=== PATIENT | female | born 1965 | race Caucasian/White ===

== ENCOUNTER 2024-02-26 07:48 | Inpatient (IN) ==
--- NOTE | 2024-02-26 08:18 | ED.PDOC ---
General ED Provider: Dr. DAVID DRIVER MD Chief Complaint: Diarrhea Stated Complaint: Patient is a 58-year-old female that reported to the emergency department for diarrhea x 1 week. Patient stated that she has had the flu about a week ago but has not been able to get rid of her diarrhea. Patient states that she has had 10-15 bouts of diarrhea daily with her last bout being this morning. Patient denies any blood or mucus in the diarrhea. Patient states that the diarrhea is mainly water. Patient denies any recent camping trips, travel outside the country, or eating anything that tasted unpleasant to her. Patient denies any recent contacts with similar symptoms. Patient denies take any medications for her diarrhea. Patient also states that she has [id number] in her hands and feet. Patient states that she has this due to her diabetes. Patient stated that she is prescribed gabapentin for her diabetes but she has not been able to take it because it upsets her stomach. Patient states that she takes metformin 500 mg twice a day for diabetes. Patient stated that she has not checked her blood glucose recently. Patient denied any thing making her symptoms better. Patient states she is not able to hold down food or water as it comes out in the form of diarrhea. Patient states that nothing makes her symptoms better. Patient denies any fever, shortness of breath, chest pain, dizziness, syncope, loss consciousness, headache, sore throat, or any other acute symptoms not mentioned in HPI. Time Seen by Provider: 02/26/24 08:05 Mode of Arrival: Walk-In Information Source: Patient Exam Limitations: No limitations Nursing and Triage Documentation Reviewed and Agree: Yes Does Patient Take Opioids?: No Is Patient Opioid Naive?: No What is Opioid Naive?: *Opioid Naive implies the patient is not already taking opioids or not chronically receiving opioids on a daily basis. *PRN dosing is not "usually" associated with tolerance. *Patients are at higher risk of over-sedation and aspiration. Is Patient Opioid Tolerant?: No What is Opioid Tolerant?: *Opioid Tolerance implies less than the expected response to an opioid. *Acquired tolerance is defined by the patient taking 60mg of oral morphine daily (or equianalgesic dose of another opioid) for 1 week or more. *Often associated with chronic pain. *May take more than usual dose to achieve desired pain control. Review of Systems Review Of Systems Constitutional: Reports No symptoms Eyes: Reports No symptoms Ears, Nose, Mouth, Throat: Reports No symptoms Respiratory: Reports No symptoms Cardiac: Reports No symptoms GI: Reports Diarrhea : Reports No symptoms Musculoskeletal: Reports No symptoms Skin: Reports No symptoms Neurological: Reports Tingling (Paresthesias in her hands and feet.) Endocrine: Reports No symptoms Hematologic/Lymphatic: Reports No symptoms All Other Systems: Reviewed and Negative [facility] Female Reproductive History Menstrual Hx Hysterectomy: Yes Physical Exam Physical Exam Appearance: Reports Well-appearing, No pain distress and Well-nourished Ill-appearing: None Pain Distress: None Eyes: Reports TAM, EOMI and Conjunctiva clear ENT: Reports Ears normal, Nose normal and Oropharynx normal Neck: Supple Respiratory: Reports Airway patent, Breath sounds clear, Breath sounds equal and Respirations nonlabored Cardiovascular: Reports RRR, Pulses normal, No rub and No murmur GI/: Reports Soft, Nontender, No masses, Bowel sounds normal and No Organomegaly Musculoskeletal: Reports Normal strength, ROM intact, No edema and No calf tenderness Skin: Reports Warm, Dry and Normal color Neurological: Reports Sensation intact, Motor intact, Reflexes intact, Cranial nerves intact, Alert and Oriented Psychiatric: Reports Affect appropriate and Mood appropriate Course Course 02/26/24 08:21 02/26/24 08:21 Orders, Labs, Meds: Lab Review 02/26/24 08:21 WBC 16.98 H RBC 5.08 Hgb 14.4 Hct 43.8 MCV 86.2 MCH 28.3 MCHC 32.9 RDW Coeff of Rubio 14.6 Plt Count 274 Immature Gran % (Auto) 0.6 Neut % (Auto) 85.0 H Lymph % (Auto) 8.2 L [place] % (Auto) 5.7 Eos % (Auto) 0.1 Baso % (Auto) 0.4 Neut # (Auto) 14.4 H Lymph # (Auto) 1.4 [place] # (Auto) 1.0 Eos # (Auto) 0.0 Baso # (Auto) 0.1 Immature Gran # (Auto) 0.1 Sodium 137.9 Potassium 2.17 L* Chloride 99.0 Carbon Dioxide 25.0 Anion Gap 16.07 BUN 16.3 Creatinine 1.08 Estimated GFR (MDRD) 52.00 BUN/Creatinine Ratio 15.09 Glucose 150.7 H Hemoglobin A1c 6.09 H Calcium 7.56 L Total Bilirubin 0.82 AST 71.1 H ALT 31.0 Alkaline Phosphatase 86.9 Total Protein 7.54 Albumin 3.86 Globulin 3.68 Albumin/Globulin Ratio 1.04 Lipase 459.6 H Orders Category Date Time Status NPO REMINDER: IMAGING ONCE CARE 02/26/24 08:54 Active CBC W/ AUTO DIFF Stat LAB 02/26/24 08:21 Completed CMP [COMPREHENSIVE METABOLIC PANEL] Stat LAB 02/26/24 08:21 Completed HEMOGLOBIN A1C Stat LAB 02/26/24 08:21 Completed LIPASE Stat LAB 02/26/24 08:21 Completed URINALYSIS C & S IF INDICATED Stat LAB 02/26/24 08:12 Uncollected Ciprofloxacin/D5w [Cipro 400 mg/200 ml D5w] Meds 02/26/24 08:49 Discontinued 400 mg in 200 ml IV ONCE Loperamide HCl [Imodium A-D] Meds 02/26/24 08:05 Discontinued 4 mg PO ONCE STA Lorazepam [Ativan] Meds 02/26/24 08:10 Discontinued 1 mg IVP ONCE STA Potassium Chloride [K-Dur] Meds 02/26/24 08:40 Discontinued 40 meq PO ONCE STA Potassium Chloride [Potassium Chloride 20 Meq/100 ml Meds 02/26/24 08:40 Active Premix] 20 meq in 100 ml IV ONCE Pregabalin [Lyrica] Meds 02/26/24 08:25 Discontinued 100 mg PO ONCE STA Sodium Chloride 0.9% [Sodium Chloride] 1,000 ml Meds 02/26/24 08:[address] ABDOMEN/PELVIS W CONTRAST Stat RADS 02/26/24 08:54 Completed Medications Generic Name Dose Route Start Last Admin Trade Name Freq PRN Reason Stop Dose Admin Potassium Chloride 20 meq in 100 mls @ 50 mls/hr 02/26/24 08:40 02/26/24 08:45 Potassium Chloride 20 Meq/100 Ml Premix IV 02/26/24 10:39 50 mls/hr ONCE ONE Administration Discontinued Medications Generic Name Dose Route Start Last Admin Trade Name Freq PRN Reason Stop Dose Admin Sodium Chloride 1,000 mls @ 1,000 mls/hr 02/26/24 08:05 02/26/24 10:00 Sodium Chloride IV 02/26/24 09:04 Infused BOLUS ONE Infusion Ciprofloxacin/Dextrose 400 mg in 200 mls @ 200 mls/hr 02/26/24 08:49 Cipro 400 Mg/200 Ml D5w IV 02/26/24 09:48 ONCE ONE Loperamide HCl 4 mg 02/26/24 08:05 02/26/24 08:25 Loperamide Hcl 2 Mg/15 Ml Bottle PO 02/26/24 08:06 4 mg ONCE STA Administration Lorazepam 1 mg 02/26/24 08:10 02/26/24 08:20 Lorazepam Inj 2 Mg/Ml Vial IVP 02/26/24 08:11 1 mg ONCE STA Administration Potassium Chloride 40 meq 02/26/24 08:40 02/26/24 08:46 Potassium Chloride 20 Meq Tab PO 02/26/24 08:41 40 meq ONCE STA Administration Pregabalin 100 mg 02/26/24 08:25 02/26/24 08:46 Pregabalin 50 Mg Capsule PO 02/26/24 08:26 100 mg ONCE STA Administration Vital Signs: Temp Pulse Resp BP Pulse Ox O2 Flow Rate 02/26/24 08:41 67 16 126/61 98 2 02/26/24 08:33 94 L 2 02/26/24 08:26 73 16 118/65 95 02/26/24 07:53 98.9 F 73 17 113/62 98 Discharge Plan Discharge Patient Disposition: PLACED OBSERVATION Discharge Problem: Diarrhea, Uncontrolled type 2 diabetes mellitus with hyperglycemia, Hypokalemia, Gastroenteritis, Dehydration, Adrenal mass, Fatty liver, Colitis Diabetic neuropathy Qualifiers: Diabetes mellitus type: type 2 Diabetes mellitus complication detail: diabetic polyneuropathy Qualified Code(s): E11.42 - Type 2 diabetes mellitus with diabetic polyneuropathy Did you review [place] [employer] for ALL controlled substances?: Not Applicable ED Provider: DAVID DRIVER Condition: Stable Physician Progress Note: Patient is a 58-year-old female that reported to the emergency department for diarrhea x 1 week. Patient stated that she has had the flu about a week ago but has not been able to get rid of her diarrhea. Patient states that she has had 10-15 bouts of diarrhea daily with her last bout being this morning. Patient denies any blood or mucus in the diarrhea. Patient states that the diarrhea is mainly water. Patient denies any recent camping trips, travel outside the country, or eating anything that tasted unpleasant to her. Patient denies any recent contacts with similar symptoms. Patient denies take any medications for her diarrhea. Patient also states that she has [id number] in her hands and feet. Patient states that she has this due to her diabetes. Patient stated that she is prescribed gabapentin for her diabetes but she has not been able to take it because it upsets her stomach. Patient states that she takes metformin 500 mg twice a day for diabetes. Patient stated that she has not checked her blood glucose recently. Patient denied any thing making her symptoms better. Patient states she is not able to hold down food or water as it comes out in the form of diarrhea. Patient states that nothing makes her symptoms better. Patient denies any fever, shortness of breath, chest pain, dizziness, syncope, loss consciousness, headache, sore throat, or any other acute symptoms not mentioned in HPI. -Will give the patient IV fluids for dehydration due to diarrhea x 1 week and not being able to hold down any fluids. -Will get baseline labs. Will give the patient IV Ativan 1 mg for anxiety. -Will give the patient p.o. Imodium 4 mg once for diarrhea. -Patient is complaining of peripheral neuropathy pain. Will give her pregabalin 100 mg once in the ER. Patient has not taken her gabapentin as mentioned in HPI. -Patient's potassium is 2.17. Will replace potassium. Will add a K rider with 20 mEq of potassium and give p.o. potassium 40 mEq. -Patient has a 16,000 white count which is indicative patient has been competing with a infectious gastroenteritis. Will give IV ciprofloxacin 400 mg. -Patient has an elevated lipase of 456. With the patient's discomfort in the abdomen and elevated lipase will order CT of the abdomen pelvis with contrast to rule out pancreatitis versus other intra-abdominal pathology. -Due to patient's hypokalemia of 2.17 will contact hospitalist after CT returns for admission to the hospital. -CT of the abdomen pelvis shows colitis, adrenal mass, fatty liver. -(0900) spoke to the hospitalist at [facility], Leobardo Carrera NP, who has agreed to admit the patient for acute hypokalemia and infectious gastroenteritis with dehydration.
[2024-02-26] MEDS: SODIUM CHLORIDE 1,000 ML IV ONE (08:20)
[2024-02-26] MEDS: ATIVAN IVP STA (08:20)
[2024-02-26 08:25] LABS: BASOPHILS # (AUTO) 0.1 K/uL (0-0.2); BASOPHILS % (AUTO) 0.4 % (0.0-3.0); EOSINOPHILS % (AUTO) 0.1 % (0.0-7.0); HEMATOCRIT 43.8 % (37.0-47.0); HEMOGLOBIN 14.4 g/dl (12.0-16.0); IMMATURE GRANULOCYTE # (AUTO) 0.1 (0.0-1.0); IMMATURE GRANULOCYTE % (AUTO) 0.6 % (0.0-5.0); LYMPHOCYTES # (AUTO) 1.4 K/uL (0.60-3.4); LYMPHOCYTES % (AUTO) 8.2 (10.0-50.0); MEAN CORPUSCULAR HEMOGLOBIN 28.3 pg (27.0-31.0); MEAN CORPUSCULAR HGB CONC 32.9 (31.8-35.4); MEAN CORPUSCULAR VOLUME 86.2 fl (81.0-99.0); MONOCYTES % (AUTO) 5.7 (0-10); NEUTROPHILS # (AUTO) 14.4 K/ul (2.0-6.9); PLATELET COUNT 274 10^3/uL (140-440); RDW COEFFICIENT OF VARIATION 14.6 % (11.6-14.8); RED BLOOD COUNT 5.08 10^6/ul (4.20-5.40); WHITE BLOOD COUNT 16.98 K/ul (4.6-10.2)
[2024-02-26] MEDS: IMODIUM A-D PO STA (08:25)
[2024-02-26 08:38] LABS: ALBUMIN 3.86 g/dL (3.5-5.0); ALKALINE PHOSPHATASE 86.9 U/L (38-126); ASPARTATE AMINO TRANSFERASE 71.1 U/L (14-36); BILIRUBIN,TOTAL 0.82 mg/dL (0.2-1.3); BLOOD UREA NITROGEN 16.3 mg/dL (7-17); CALCIUM 7.56 mg/dL (8.4-10.2); CREATININE 1.08 mg/dL (0.60-1.30); GLUCOSE 150.7 mg/dL (74-106); LIPASE 459.6 U/L (23-300); SODIUM 137.9 mmol/L (134.5-145); TOTAL PROTEIN 7.54 g/dL (6.3-8.2)
[2024-02-26 08:40] LABS: POTASSIUM 2.17 mmol/L (3.5-5.1)
[2024-02-26] MEDS: POTASSIUM CHLORIDE 20 MEQ/100 ML PREMIX 20 MEQ/100 ML BAG IV ONE ×2 (08:45→17:28)
[2024-02-26] MEDS: K-DUR PO STA (08:46)
[2024-02-26] MEDS: LYRICA PO STA (08:46)
--- NOTE | 2024-02-26 10:04 | CT ---
EXAM: CT ABDOMEN WITH CONTRAST. CT PELVIS WITH CONTRAST. HISTORY: Abdominal discomfort. Elevated lipase. COMPARISON: None. TECHNIQUE: Multiple axial images of the abdomen and pelvis were obtained following intravenous admin istration of 100 mL Visipaque 320, low osmolar. Images were reformatted in the sagittal and coronal plane. FINDINGS: Small right pleural effusion noted. Staple line along the posterolateral right lower lobe pleural margin. Degenerative changes present in the spine. No acute osseous abnormality detected. Focal areas of low density noted in the liver, including in the left hepatic lobe near the fissure ex ample axial image 19 and near the gallbladder fossa axial image 22. Gallbladder is absent. Pancreas is normal. No peripancreatic inflammation or fluid collection. There is a lobular low density sple ovidio lesion measuring approximately 2.9 x 2.6 x 2.4 cm axial image 22 and coronal image 56. Spleen ot herwise normal. Homogeneous circumscribed 1.3 cm right adrenal nodule contains macroscopic fat densi ty example axial image 29. There is symmetric renal enhancement. There is mild right renal pelvocal iectasis without ureterectasis. No obstructing stone or mass identified. Stomach and small bowel are normal. Appendix normal. Suspect mild wall thickening of the colon most notably from the splenic flexure through the rectum. Uterus absent. Urinary bladder normal. Phleboliths in the pelvis. There is no free fluid or free a ir. Nonenlarged lymph nodes present. Fatty umbilical and periumbilical hernias present without inflammation, sagittal images 90 and 94. A therosclerotic calcifications present without aneurysm. IMPRESSION: 1. Mild distal colitis. 2. No CT evidence for pancreatitis. 3. Probable focal fatty infiltration in the liver. Indeterminate low-density splenic lesion. Consi emily follow-up ultrasound. 4. Right pelvocaliectasis without ureterectasis is suggestive of UPJ obstruction of uncertain chroni city. 5. Benign right adrenal myelolipoma. 6. Atherosclerosis. 7. Small right pleural effusion. All CT scans are performed using dose optimization techniques as appropriate to the performed exam an d include at least one of the following: Automated exposure control, adjustment of the mA and/or kV according t o size, and the use of iterative reconstruction technique.
[2024-02-26 10:47] LABS: SARS COV-2 RNA RAPID NAAT NEGATIVE (NEGATIVE)
[2024-02-26] MEDS: CIPRO 400 MG/200 ML D5W 400 MG/200 ML BAG IV ONE (11:01)
[2024-02-26 11:46] VITALS: BMI 39.2
[2024-02-26] MEDS ORDERED: HUMULIN R (10ML) SUBCUT PRN (12:17)
[2024-02-26] MEDS: D5%-NS-KCL 20 MEQ/L IV SOL 1,000 ML IV SCH (12:44)
[2024-02-26] MEDS: FLAGYL 500 MG/100 ML 500 MG/100 ML BAG IV SCH (12:44)
[2024-02-26 15:06] LABS: BILIRUBIN,URINE Negative (NEGATIVE); CLARITY,URINE Clear (CLEAR); COLOR,URINE Yellow (YELLOW); GLUCOSE, URINE (UA) Negative (NEGATIVE); KETONES,URINE Negative (NEGATIVE); LEUKOCYTE ESTERASE ,URINE 1+ (NEGATIVE); NITRITE,URINE Negative (NEGATIVE); PH,URINE 6.5 (5-9); PROTEIN,URINE 1+ (NEGATIVE); URINE, BLOOD 3+ (NEGATIVE); UROBILINOGEN,URINE 0.2 (0.2)
[2024-02-26 15:13] LABS: RENAL EPITHELIAL CELLS,URINE 0-2 (NOT PRESENT)
[2024-02-26 16:17] LABS: BLOOD UREA NITROGEN 13.4 mg/dL (7-17); CALCIUM 6.79 mg/dL (8.4-10.2); CHLORIDE 102.9 mmol/L (98-107); CREATININE 0.95 mg/dL (0.60-1.30); GLUCOSE 119.1 mg/dL (74-106); SODIUM 138.9 mmol/L (134.5-145)
[2024-02-26 16:20] LABS: POTASSIUM 2.35 mmol/L (3.5-5.1)
--- NOTE | 2024-02-26 17:19 | PCM ---
Date of Service Date Seen by Provider: 02/26/24 Admit Day/Time Admission Date: 02/26/24 Reason for Admission Chief Complaint: SYMPTOMATIC HYPOKALEMIA, GASTROENTERITIS Hospital Provider Hospital Provider: LUISA WIGGINS, [facility] History of Present Illness History of Present Illness: 58 yo female presented to the ER with N/V/D x 1 week. Reports symptoms started with diarrhea on Friday of last week and progressed to vomiting over the last 2 days. Denies any abdominal pain, fever that she is aware of, or other symptoms. Denies blood in stool or vomit. Denies any sick contacts or recent antibiotic use. In ER, she was found to have colitis via CT scan, lipase of 459, and potassium was found to be 2.1. Given potassium replacement and cipro. She was admitted to med/surg observation. Case Discussed With Case Discussed With: Patient's case was discussed with the ER Physicians, Dr. Bolton. [facility] Medical History Fibromyalgia M79.7 - Fibromyalgia (ICD-10) TMJ (temporomandibular joint disorder) M26.609 - Unspecified temporomandibular joint disorder, unspecified side (ICD-10) Surgical History History of brain surgery Z98.890 - Other specified postprocedural states (ICD-10) History of hysterectomy Z90.710 - Acquired absence of both cervix and uterus (ICD-10) Family History Mother Diabetes CVA (cerebral vascular accident) FATHER Lung cancer Social History Smoking and tobacco status: Former smoker Alcohol intake: never Allergies Allergies Allergy/AdvReac Type Severity Reaction Status Date / Time No Known Allergies Allergy Unverified 02/26/24 08:01 Current Medications Home Medications atorvastatin 40 mg tablet 40 mg PO DAILY 02/26/24 [History Confirmed 02/26/24 Last Taken Unknown] dapagliflozin propanediol 10 mg tablet (Farxiga) 10 mg PO DAILY 02/26/24 [History Confirmed 02/26/24 Last Taken Unknown] ezetimibe 10 mg tablet 10 mg PO DAILY 02/26/24 [History Confirmed 02/26/24 Last Taken Unknown] gabapentin 400 mg capsule 400 mg PO TID 02/26/24 [History Confirmed 02/26/24 Last Taken Unknown] loperamide 2 mg capsule (Imodium A-D) See Rx Instructions .Route .COMPLEX PRN loose stool #14 caps 02/26/24 [Rx Last Taken Unknown] metformin 500 mg tablet 500 mg PO BID 02/26/24 [History Confirmed 02/26/24 Last Taken Unknown] omeprazole 20 mg capsule,delayed release 20 mg PO DAILY 02/26/24 [History Confirmed 02/26/24 Last Taken Unknown] sertraline 50 mg tablet 50 mg PO DAILY 02/26/24 [History Confirmed 02/26/24 Last Taken Unknown] Home Metronidazole (Flagyl 500 Mg/100 Ml) 500 mg in 100 mls @ 100 mls/hr IV Q8HR KAREEM Stop: 02/29/24 12:59 Last Admin: 02/26/24 12:44 Dose: 100 mls/hr Ciprofloxacin/Dextrose (Cipro 400 Mg/200 Ml D5w) 400 mg in 200 mls @ 200 mls/hr IV Q12HR KAREEM Stop: 02/29/24 20:59 Potassium Chloride/Dextrose/Sod Cl (D5%-Ns-Kcl 20 Meq/L Iv Zita) 1,000 mls @ 100 mls/hr IV .Q10H KAREEM Last Admin: 02/26/24 12:44 Dose: 100 mls/hr Potassium Chloride (Potassium Chloride 20 Meq/100 Ml Premix) 20 meq in 100 mls @ 50 mls/hr IV ONCE ONE Stop: 02/26/24 19:11 Insulin Human Regular (Insulin Regular, Human 100 Unit/Ml (10ml) Vial) 0 unit SUBCUT PRN PRN; Protocol PRN Reason: Hyperglycemia Discontinued Medications Sodium Chloride (Sodium Chloride) 1,000 mls @ 1,000 mls/hr IV BOLUS ONE Stop: 02/26/24 09:04 Last Infusion: 02/26/24 10:00 Dose: Infused Potassium Chloride (Potassium Chloride 20 Meq/100 Ml Premix) 20 meq in 100 mls @ 50 mls/hr IV ONCE ONE Stop: 02/26/24 10:39 Last Admin: 02/26/24 08:45 Dose: 50 mls/hr Ciprofloxacin/Dextrose (Cipro 400 Mg/200 Ml D5w) 400 mg in 200 mls @ 200 mls/hr IV ONCE ONE Stop: 02/26/24 09:48 Last Admin: 02/26/24 11:01 Dose: 200 mls/hr Loperamide HCl (Loperamide Hcl 2 Mg/15 Ml Bottle) 4 mg PO ONCE STA Stop: 02/26/24 08:06 Last Admin: 02/26/24 08:25 Dose: 4 mg Lorazepam (Lorazepam Inj 2 Mg/Ml Vial) 1 mg IVP ONCE STA Stop: 02/26/24 08:11 Last Admin: 02/26/24 08:20 Dose: 1 mg Potassium Chloride (Potassium Chloride 20 Meq Tab) 40 meq PO ONCE STA Stop: 02/26/24 08:41 Last Admin: 02/26/24 08:46 Dose: 40 meq Potassium Chloride (Potassium Chloride 20 Meq Tab) 40 meq PO ONCE ONE Stop: 02/26/24 17:13 Pregabalin (Pregabalin 50 Mg Capsule) 100 mg PO ONCE STA Stop: 02/26/24 08:26 Last Admin: 02/26/24 08:46 Dose: 100 mg Opioid Naive vs. Tolerant Does Patient Take Opioids?: No Is Patient Opioid Naive?: Yes What is Opioid Naive?: *Opioid Naive implies the patient is not already taking opioids or not chronically receiving opioids on a daily basis. *PRN dosing is not "usually" associated with tolerance. *Patients are at higher risk of over-sedation and aspiration. Is Patient Opioid Tolerant?: No What is Opioid Tolerant?: *Opioid Tolerance implies less than the expected response to an opioid. *Acquired tolerance is defined by the patient taking 60mg of oral morphine daily (or equianalgesic dose of another opioid) for 1 week or more. *Often associated with chronic pain. *May take more than usual dose to achieve desired pain control. Review of Systems Constitutional: Reports Weakness Head: Reports Normocephalic Eyes: Reports No symptoms Ears: Reports No symptoms Nose: Reports No symptoms Mouth: Reports No symptoms Throat: Reports No symptoms Cardiovascular: Reports No symptoms Respiratory: Reports No symptoms Gastrointestinal: Reports Nausea, Vomiting and Diarrhea Genitourinary: Reports No Symptoms Musculoskeletal: Reports No symptoms Endocrine: Reports No symptoms Hematology: Reports No symptoms Neurological: Reports No symptoms Psychiatric: Reports No symptoms Physical examination Most Recent Vital Signs: Most Recent Vital Signs Temperature 96.7 F L 02/26/24 14:00 Temperature Source Temporal Artery Scan 02/26/24 14:00 Temperature Source Infrared 02/26/24 07:53 Pulse Rate 73 02/26/24 14:00 Respiratory Rate 16 02/26/24 14:00 Blood Pressure 109/65 02/26/24 14:00 Blood Pressure Mean 79 02/26/24 14:00 Blood Pressure Left Arm 108/62 02/26/24 11:33 Blood Pressure Location Left Arm 02/26/24 14:00 Blood Pressure Position Supine 02/26/24 14:00 O2 Sat by Pulse Oximetry 97 02/26/24 14:00 Oxygen Delivery Method Room Air 02/26/24 17:00 Oxygen Flow Rate 2 02/26/24 11:33 Height 5 ft 6 in 02/26/24 11:33 Weight 243 lb 8 oz 02/26/24 11:33 Telemetry Type Remote Telemetry 02/26/24 13:00 Telemetry Monitoring Continues 02/26/24 13:00 Telemetry Heart Rate 66 02/26/24 13:00 EKG DE Interval 0.18 02/26/24 13:00 EKG QRS Interval 0.10 02/26/24 13:00 Telemetry Strip Reading SR 02/26/24 13:00 Appearance: Positive No Apparent Distress, Alert and Oriented x3 and Obese Skin: Positive Warm and Good Color HEENT: Positive Normocephalic and PERRLA Neck: Positive Supple and Midline Trachea Chest/Lungs: Positive Symmetrical With Equal Breath Sounds, Clear to Auscultation Bilaterally and Good Air Movement all 4 Lung [place] Heart: Positive RRR and Pulses Normal GI/: Positive Soft, Nontender, Bowel Sounds Normal and No Distention Musculoskeletal: Positive Not Examined Extremities: Positive Intact Peripheral Pulses, Stable Joints Without Laxity and Good ROM in All Joints Neurological: Positive Sensation Intact, Motor intact, Alert, Oriented and Muscle Strength 5/5 in Upper and Lower Extremities Bilaterally Labs This Visit Labs This Visit: Labs This Visit 02/26/24 02/26/24 02/26/24 08:21 10:06 14:52 WBC 16.98 H RBC 5.08 Hgb 14.4 Hct 43.8 MCV 86.2 MCH 28.3 MCHC 32.9 RDW Coeff of Rubio 14.6 Plt Count 274 Immature Gran % (Auto) 0.6 Neut % (Auto) 85.0 H Lymph % (Auto) 8.2 L [place] % (Auto) 5.7 Eos % (Auto) 0.1 Baso % (Auto) 0.4 Neut # (Auto) 14.4 H Lymph # (Auto) 1.4 [place] # (Auto) 1.0 Eos # (Auto) 0.0 Baso # (Auto) 0.1 Immature Gran # (Auto) 0.1 Sodium 137.9 Potassium 2.17 L* Chloride 99.0 Carbon Dioxide 25.0 Anion Gap 16.07 BUN 16.3 Creatinine 1.08 Estimated GFR (MDRD) 52.00 BUN/Creatinine Ratio 15.09 Glucose 150.7 H Hemoglobin A1c 6.09 H Calcium 7.56 L Total Bilirubin 0.82 AST 71.1 H ALT 31.0 Alkaline Phosphatase 86.9 Total Protein 7.54 Albumin 3.86 Globulin 3.68 Albumin/Globulin Ratio 1.04 Lipase 459.6 H Urine Color Yellow Urine Clarity Clear Urine pH 6.5 Ur Specific [place] 1.010 Urine Protein 1+ H Urine Glucose (UA) Negative Urine Ketones Negative Urine Blood 3+ H Urine Nitrite Negative Urine Bilirubin Negative Urine Urobilinogen 0.2 Ur Leukocyte Esterase 1+ H Urine Microscopic RBC 10-20 Urine Microscopic WBC 5-10 Ur Squamous Epith Cells 5-10 Ur Renal Epithelial Cell 0-2 SARS CoV-2 RNA Rapid SONU Negative 02/26/24 16:00 WBC RBC Hgb Hct MCV MCH MCHC RDW Coeff of [place] Plt Count Immature Gran % (Auto) Neut % (Auto) Lymph % (Auto) [place] % (Auto) Eos % (Auto) Baso % (Auto) Neut # (Auto) Lymph # (Auto) [place] # (Auto) Eos # (Auto) Baso # (Auto) Immature Gran # (Auto) Sodium 138.9 Potassium 2.35 L* Chloride 102.9 Carbon Dioxide 27.0 Anion Gap 11.35 BUN 13.4 Creatinine 0.95 Estimated GFR (MDRD) 60.00 BUN/Creatinine Ratio 14.10 Glucose 119.1 H Hemoglobin A1c Calcium 6.79 L Total Bilirubin AST ALT Alkaline Phosphatase Total Protein Albumin Globulin Albumin/Globulin Ratio Lipase Urine Color Urine Clarity Urine pH Ur Specific [place] Urine Protein Urine Glucose (UA) Urine Ketones Urine Blood Urine Nitrite Urine Bilirubin Urine Urobilinogen Ur Leukocyte Esterase Urine Microscopic RBC Urine Microscopic WBC Ur Squamous Epith Cells Ur Renal Epithelial Cell SARS CoV-2 RNA Rapid SONU Imaging Imaging: EXAM: CT ABDOMEN WITH CONTRAST. CT PELVIS WITH CONTRAST. FINDINGS: Small right pleural effusion noted. Staple line along the posterolateral right lower lobe pleural margin. Degenerative changes present in the spine. No acute osseous abnormality detected. Focal areas of low density noted in the liver, including in the left hepatic lobe near the fissure example axial image 19 and near the gallbladder fossa axial image 22. Gallbladder is absent. Pancreas is normal. No peripancreatic inflammation or fluid collection. There is a lobular low density splenic lesion measuring approximately 2.9 x 2.6 x 2.4 cm axial image 22 and coronal image 56. Spleen otherwise normal. Homogeneous circumscribed 1.3 cm right adrenal nodule contains macroscopic fat density example axial image 29. There is symmetric renal enhancement. There is mild right renal pelvocaliectasis without ureterectasis. No obstructing stone or mass identified. Stomach and small bowel are normal. Appendix normal. Suspect mild wall thickening of the colon most notably from the splenic flexure through the rectum. Uterus absent. Urinary bladder normal. Phleboliths in the pelvis. There is no free fluid or free air. Nonenlarged lymph nodes present. Fatty umbilical and periumbilical hernias present without inflammation, sagittal images 90 and 94. Atherosclerotic calcifications present without aneurysm. IMPRESSION: 1. Mild distal colitis. 2. No CT evidence for pancreatitis. 3. Probable focal fatty infiltration in the liver. Indeterminate low-density splenic lesion. Consider follow-up ultrasound. 4. Right pelvocaliectasis without ureterectasis is suggestive of UPJ obstruction of uncertain chronicity. 5. Benign right adrenal myelolipoma. 6. Atherosclerosis. 7. Small right pleural effusion. Review Statement Review Statement: I have independently reviewed and interpreted the labs/EKGs/imaging that were ordered by the ER provider. I have reviewed all outside records that are available currently in our EMR including imaging/notes/labs from previous visits. Plan Plan: 1. Severe Hypokalemia - replacement given in ER, repeat level completed this afternoon and additional replacement given, receiving D5NS+20 mEq KCL@100mLh/hr, telemetry 2. Distal Colitis - NPO earlier today, advancing to clear liquids; continue to advance diet as tolerated, cipro and flagyl, trend lipase and potassium 3. DM2 - chronic, hold oral agents accuchecks qid with ssi, ADA when able to resume full diet 4. Hyperlipidemia - chronic, continue home medications 5. GERD - chronic, continue home medications DVT Prophylaxis: Ambulation Time Spent: Greater than 80 minutes spent with patient, 50% of the time spent with this patient was devoted to counseling and coordination of care. [facility] minutes spent discussing advance care planning. Disposition: Admit to: Med/Surg Observation DNI, CPR only Discussed Plan of Care with Dr. Micheal Caruso. Medications Medication Orders: Medications Ordered Category Date Time Status Ciprofloxacin/D5w [Cipro 400 mg/200 ml D5w] Meds 02/26/24 21:00 Active 400 mg in 200 ml IV Q12HR Insulin Regular, Human [Humulin R (10Ml)] Meds 02/26/24 12:17 Active See Protocol SUBCUT PRN PRN Metronidazole/Sodium Chloride [Flagyl 500 mg/100 ml] Meds 02/26/24 13:00 Active 500 mg in 100 ml IV Q8HR Potassium Chloride [K-Dur] Meds 02/26/24 17:12 Once 40 meq PO ONCE ONE Potassium Chloride [Potassium Chloride 20 Meq/100 ml Meds 02/26/24 17:12 Ordered Premix] 20 meq in 100 ml IV ONCE Potassium Chloride/D5-0.9%NaCl [D5%-Ns-KCl 20 Meq/l IV Meds 02/26/24 12:30 Active Zita] 1,000 ml IV 100 mls/hr
[2024-02-26] MEDS: K-DUR PO ONE (17:28)
[2024-02-26] MEDS: NEURONTIN PO SCH ×2 (20:12)
[2024-02-26] MEDS: CIPRO 400 MG/200 ML D5W 400 MG/200 ML BAG IV SCH (21:19)
[2024-02-27 05:26] LABS: BASOPHILS # (AUTO) 0.1 K/uL (0-0.2); BASOPHILS % (AUTO) 0.5 % (0.0-3.0); EOSINOPHILS # (AUTO) 0.2 K/ul (0.0-0.7); EOSINOPHILS % (AUTO) 1.4 % (0.0-7.0); HEMATOCRIT 40.7 % (37.0-47.0); HEMOGLOBIN 12.9 g/dl (12.0-16.0); IMMATURE GRANULOCYTE # (AUTO) 0.1 (0.0-1.0); IMMATURE GRANULOCYTE % (AUTO) 0.4 % (0.0-5.0); LYMPHOCYTES % (AUTO) 16.3 (10.0-50.0); MEAN CORPUSCULAR HEMOGLOBIN 28.5 pg (27.0-31.0); MEAN CORPUSCULAR HGB CONC 31.7 (31.8-35.4); MONOCYTES # (AUTO) 0.8 K/uL (0.4-2.0); MONOCYTES % (AUTO) 6.8 (0-10); NEUTROPHILS # (AUTO) 9.3 K/ul (2.0-6.9); NEUTROPHILS % (AUTO) 74.6 % (42.2-75.2); PLATELET COUNT 251 10^3/uL (140-440); RED BLOOD COUNT 4.52 10^6/ul (4.20-5.40); WHITE BLOOD COUNT 12.43 K/ul (4.6-10.2)
[2024-02-27 05:40] LABS: ALANINE AMINOTRANSFERASE 35.5 U/L (0-35); ALBUMIN 3.41 g/dL (3.5-5.0); ALKALINE PHOSPHATASE 77.1 U/L (38-126); ASPARTATE AMINO TRANSFERASE 96.3 U/L (14-36); BILIRUBIN,TOTAL 0.45 mg/dL (0.2-1.3); BLOOD UREA NITROGEN 9.5 mg/dL (7-17); CALCIUM 6.93 mg/dL (8.4-10.2); CHLORIDE 106.3 mmol/L (98-107); CREATININE 0.79 mg/dL (0.60-1.30); GLUCOSE 133.7 mg/dL (74-106); SODIUM 140.7 mmol/L (134.5-145); TOTAL PROTEIN 6.86 g/dL (6.3-8.2)
[2024-02-27 05:46] LABS: POTASSIUM 2.65 mmol/L (3.5-5.1)
[2024-02-27] MEDS: K-DUR PO STA (06:40)
[2024-02-27] MEDS: POTASSIUM CHLORIDE 20 MEQ/100 ML PREMIX 20 MEQ/100 ML BAG IV ONE (07:02)
[2024-02-27] MEDS ORDERED: NON-FORMULARY MEDICATION (Gabapentin 400 mg capsule) PO SCH (09:10)
[2024-02-27] MEDS: NEURONTIN PO SCH (09:19)
[2024-02-27] MEDS ORDERED: GABAPENTIN PO ONE (09:30)
--- NOTE | 2024-02-27 13:18 | PCM.PROG ---
Date/Time Seen Date Seen by Provider: 02/27/24 Time Seen by Provider: 08:30 Provider [facility] Chief Complaint Chief Complaint: SYMPTOMATIC HYPOKALEMIA, GASTROENTERITIS Subjective Subjective: Continues to feel weak and fatigued. Has had more episodes of liquid diarrhea. Tolerating clear liquids well without abdominal pain or vomiting. Reports weakness episode when ambulating to the bathroom with nursing staff. Endorses numbness and tingling to all extremities unsure if related to neuropathy in combination with hypokalemia. No fever or other symptoms at this time. Objective Appearance: Positive No Apparent Distress, Alert and Oriented x3 and Ill- Appearing Chest/Lungs: Positive Symmetrical With Equal Breath Sounds and Clear to Auscultation Bilaterally Heart: Positive RRR and Pulses Normal GI/: Positive Soft, Nontender, Bowel Sounds Normal and No Distention Musculoskeletal: Positive Not Examined Neurological: Positive Sensation Intact, Motor intact, Alert, Oriented and Other (generalized weakness) Vital Signs Vital Signs: Vital Signs: Last 24 Hours 02/26/24 14:00 02/26/24 14:00 02/26/24 15:00 Temperature 96.7 F L Temperature Source Temporal Artery Scan Pulse Rate 73 Respiratory Rate 16 Blood Pressure 109/65 Blood Pressure Mean 79 Blood Pressure Location Left Arm Blood Pressure Position Supine O2 Sat by Pulse Oximetry 97 Oxygen Delivery Method Nasal Cannula Room Air Room Air Telemetry Type Telemetry Monitoring Telemetry Heart Rate EKG KS Interval EKG QRS Interval Telemetry Strip Reading 02/26/24 16:00 02/26/24 17:00 02/26/24 18:00 Temperature Temperature Source Pulse Rate Respiratory Rate Blood Pressure Blood Pressure Mean Blood Pressure Location Blood Pressure Position O2 Sat by Pulse Oximetry Oxygen Delivery Method Room Air Room Air Room Air Telemetry Type Telemetry Monitoring Telemetry Heart Rate EKG KS Interval EKG QRS Interval Telemetry Strip Reading 02/26/24 18:00 02/26/24 19:00 02/26/24 19:00 Temperature 96.9 F L Temperature Source Temporal Artery Scan Pulse Rate 80 Respiratory Rate 16 Blood Pressure 121/64 Blood Pressure Mean 83 Blood Pressure Location Right Arm Blood Pressure Position Supine O2 Sat by Pulse Oximetry 95 Oxygen Delivery Method Room Air Room Air Telemetry Type Remote Telemetry Telemetry Monitoring Continues Telemetry Heart Rate 76 EKG KS Interval 0.19 EKG QRS Interval 0.08 Telemetry Strip Reading 02/26/24 19:25 02/26/24 20:00 02/26/24 20:58 Temperature Temperature Source Pulse Rate Respiratory Rate 16 Blood Pressure Blood Pressure Mean Blood Pressure Location Blood Pressure Position O2 Sat by Pulse Oximetry Oxygen Delivery Method Room Air Room Air Room Air Telemetry Type Telemetry Monitoring Telemetry Heart Rate EKG KS Interval EKG QRS Interval Telemetry Strip Reading 02/26/24 20:58 02/26/24 22:00 02/26/24 23:00 Temperature 98.7 F Temperature Source Temporal Artery Scan Pulse Rate 70 Respiratory Rate 18 Blood Pressure 111/55 L Blood Pressure Mean 73 Blood Pressure Location Left Arm Blood Pressure Position Supine O2 Sat by Pulse Oximetry 93 L Oxygen Delivery Method Room Air Room Air Room Air Telemetry Type Telemetry Monitoring Telemetry Heart Rate EKG KS Interval EKG QRS Interval Telemetry Strip Reading 02/27/24 00:00 02/27/24 01:00 02/27/24 01:00 Temperature Temperature Source Pulse Rate Respiratory Rate Blood Pressure Blood Pressure Mean Blood Pressure Location Blood Pressure Position O2 Sat by Pulse Oximetry Oxygen Delivery Method Room Air Room Air Room Air Telemetry Type Telemetry Monitoring Telemetry Heart Rate EKG KS Interval EKG QRS Interval Telemetry Strip Reading 02/27/24 01:00 02/27/24 02:00 02/27/24 02:00 Temperature 96.9 F L Temperature Source Temporal Artery Scan Pulse Rate 69 Respiratory Rate 18 Blood Pressure 132/69 Blood Pressure Mean 90 Blood Pressure Location Left Arm Blood Pressure Position Supine O2 Sat by Pulse Oximetry 97 Oxygen Delivery Method Room Air Room Air Telemetry Type Remote Telemetry Telemetry Monitoring Continues Telemetry Heart Rate 64 EKG KS Interval 0.18 EKG QRS Interval 0.09 Telemetry Strip Reading sinus rhythm 02/27/24 02:58 02/27/24 04:00 02/27/24 05:00 Temperature Temperature Source Pulse Rate Respiratory Rate Blood Pressure Blood Pressure Mean Blood Pressure Location Blood Pressure Position O2 Sat by Pulse Oximetry Oxygen Delivery Method Room Air Room Air Room Air Telemetry Type Telemetry Monitoring Telemetry Heart Rate EKG KS Interval EKG QRS Interval Telemetry Strip Reading 02/27/24 05:03 02/27/24 05:44 02/27/24 07:00 Temperature 96.1 F L Temperature Source Pulse Rate 68 Respiratory Rate 18 Blood Pressure 124/68 Blood Pressure Mean 86 Blood Pressure Location Left Arm Blood Pressure Position Supine O2 Sat by Pulse Oximetry 97 Oxygen Delivery Method Room Air Room Air Room Air Telemetry Type Telemetry Monitoring Telemetry Heart Rate EKG KS Interval EKG QRS Interval Telemetry Strip Reading 02/27/24 07:00 02/27/24 07:07 02/27/24 08:00 Temperature Temperature Source Pulse Rate Respiratory Rate Blood Pressure Blood Pressure Mean Blood Pressure Location Blood Pressure Position O2 Sat by Pulse Oximetry Oxygen Delivery Method Room Air Room Air Telemetry Type Remote Telemetry Telemetry Monitoring Continues Telemetry Heart Rate 81 EKG KS Interval 0.14 EKG QRS Interval 0.10 Telemetry Strip Reading SR 02/27/24 08:15 02/27/24 09:00 02/27/24 10:00 Temperature 97.5 F L Temperature Source Oral Pulse Rate 82 Respiratory Rate 20 Blood Pressure 128/70 Blood Pressure Mean 89 Blood Pressure Location Left Arm Blood Pressure Position Supine O2 Sat by Pulse Oximetry 100 Oxygen Delivery Method Room Air Room Air Room Air Telemetry Type Telemetry Monitoring Telemetry Heart Rate EKG KS Interval EKG QRS Interval Telemetry Strip Reading 02/27/24 10:00 02/27/24 11:00 02/27/24 12:00 Temperature 97.3 F L Temperature Source Temporal Artery Scan Pulse Rate 67 Respiratory Rate 18 Blood Pressure 107/83 Blood Pressure Mean 91 Blood Pressure Location Left Arm Blood Pressure Position Sitting O2 Sat by Pulse Oximetry 97 Oxygen Delivery Method Room Air Room Air Room Air Telemetry Type Telemetry Monitoring Telemetry Heart Rate EKG KS Interval EKG QRS Interval Telemetry Strip Reading 02/27/24 12:54 02/27/24 13:00 Temperature Temperature Source Pulse Rate Respiratory Rate Blood Pressure Blood Pressure Mean Blood Pressure Location Blood Pressure Position O2 Sat by Pulse Oximetry Oxygen Delivery Method Room Air Telemetry Type Remote Telemetry Telemetry Monitoring Continues Telemetry Heart Rate 79 EKG KS Interval 0.16 EKG QRS Interval 0.10 Telemetry Strip Reading SR Lab Results Lab Results: Lab Results: Last 24 Hours 02/27/24 02/26/24 02/26/24 04:53 16:00 14:52 WBC 12.43 H RBC 4.52 Hgb 12.9 Hct 40.7 MCV 90.0 MCH 28.5 MCHC 31.7 L RDW Coeff of Rubio 15.0 H Plt Count 251 Immature Gran % (Auto) 0.4 Neut % (Auto) 74.6 Lymph % (Auto) 16.3 [place] % (Auto) 6.8 Eos % (Auto) 1.4 Baso % (Auto) 0.5 Neut # (Auto) 9.3 H Lymph # (Auto) 2.0 [place] # (Auto) 0.8 Eos # (Auto) 0.2 Baso # (Auto) 0.1 Immature Gran # (Auto) 0.1 Sodium 140.7 138.9 Potassium 2.65 L* 2.35 L* Chloride 106.3 102.9 Carbon Dioxide 25.0 27.0 Anion Gap 12.05 11.35 BUN 9.5 13.4 Creatinine 0.79 0.95 Estimated GFR (MDRD) 75.00 60.00 BUN/Creatinine Ratio 12.02 14.10 Glucose 133.7 H 119.1 H Calcium 6.93 L 6.79 L Total Bilirubin 0.45 AST 96.3 H D ALT 35.5 H Alkaline Phosphatase 77.1 Total Protein 6.86 Albumin 3.41 L Globulin 3.45 Albumin/Globulin Ratio 0.98 Urine Color Yellow Urine Clarity Clear Urine pH 6.5 Ur Specific [place] 1.010 Urine Protein 1+ H Urine Glucose (UA) Negative Urine Ketones Negative Urine Blood 3+ H Urine Nitrite Negative Urine Bilirubin Negative Urine Urobilinogen 0.2 Ur Leukocyte Esterase 1+ H Urine Microscopic RBC 10-20 Urine Microscopic WBC 5-10 Ur Squamous Epith Cells 5-10 Ur Renal Epithelial Cell 0-2 Additional Comments Additional Comments: I have independently reviewed and interpreted the labs/EKGs/imaging ordered during this hospital stay. I have reviewed outside records that are available in our EMR that pertain to medical stay including imaging/notes/labs from previous visits. Active Medications Active Medications: Medications Generic Name Dose Route Start Last Admin Trade Name Freq PRN Reason Stop Dose Admin Gabapentin 1,200 mg 02/27/24 09:30 02/27/24 09:19 Gabapentin 300 Mg Capsule PO 1,200 mg TID KAREEM Administration Metronidazole 500 mg in 100 mls @ 100 mls/hr 02/26/24 13:00 02/27/24 12:42 Flagyl 500 Mg/100 Ml IV 02/29/24 12:59 100 mls/hr Q8HR KAREEM Administration Ciprofloxacin/Dextrose 400 mg in 200 mls @ 200 mls/hr 02/26/24 21:00 02/27/24 08:53 Cipro 400 Mg/200 Ml D5w IV 02/29/24 20:59 200 mls/hr Q12HR KAREEM Administration Potassium Chloride/Dextrose/Sod Cl 1,000 mls @ 100 mls/hr 02/26/24 12:30 02/27/24 12:42 D5%-Ns-Kcl 20 Meq/L Iv Zita IV 100 mls/hr .Q10H KAREEM Administration Insulin Human Regular 0 unit 02/26/24 12:17 Insulin Regular, Human 100 Unit/Ml (10ml) Vial SUBCUT PRN PRN Hyperglycemia Protocol Plan Plan: 1. Severe Hypokalemia - Mildly improved, additional replacement given in addition to fluids, receiving D5NS+20 mEq KCL@100mLh/hr, telemetry 2. Distal Colitis - Unchanged, continues to have diarrhea - checking stool studies to r/o c.diff or other etiology, clear liquids - continue to advance diet as tolerated, cipro and flagyl, trend lipase and potassium 3. DM2 - chronic, hold oral agents accuchecks qid with ssi, ADA when able to resume full diet 4. Hyperlipidemia - chronic, continue home medications 5. GERD - chronic, continue home medications DVT Prophylaxis: Ambulation Review Statement Review Statement: I have personally discussed and reviewed the patient's visit/currently labs/imaging/decision making with Dr. Caruso, my supervising attending. Greater that 50 minutes spent with patient, 50% of the time spent with this patient was devoted to counseling and coordination of care.
[2024-02-27 15:21] LABS: BLOOD UREA NITROGEN 7.1 mg/dL (7-17); CALCIUM 6.56 mg/dL (8.4-10.2); CARBON DIOXIDE 22.9 mmol/L (22-30.0); CHLORIDE 108.6 mmol/L (98-107); CREATININE 0.73 mg/dL (0.60-1.30); GLUCOSE 127.3 mg/dL (74-106); LIPASE 315.1 U/L (23-300); POTASSIUM 3.06 mmol/L (3.5-5.1)
[2024-02-28 05:13] LABS: BASOPHILS # (AUTO) 0.1 K/uL (0-0.2); BASOPHILS % (AUTO) 0.5 % (0.0-3.0); EOSINOPHILS # (AUTO) 0.3 K/ul (0.0-0.7); EOSINOPHILS % (AUTO) 2.7 % (0.0-7.0); HEMOGLOBIN 12.5 g/dl (12.0-16.0); IMMATURE GRANULOCYTE # (AUTO) 0.1 (0.0-1.0); IMMATURE GRANULOCYTE % (AUTO) 0.5 % (0.0-5.0); LYMPHOCYTES # (AUTO) 1.9 K/uL (0.60-3.4); LYMPHOCYTES % (AUTO) 20.6 (10.0-50.0); MEAN CORPUSCULAR HEMOGLOBIN 28.3 pg (27.0-31.0); MEAN CORPUSCULAR HGB CONC 31.3 (31.8-35.4); MEAN CORPUSCULAR VOLUME 90.7 fl (81.0-99.0); MONOCYTES # (AUTO) 0.6 K/uL (0.4-2.0); NEUTROPHILS # (AUTO) 6.2 K/ul (2.0-6.9); NEUTROPHILS % (AUTO) 68.7 % (42.2-75.2); PLATELET COUNT 231 10^3/uL (140-440); RDW COEFFICIENT OF VARIATION 15.1 % (11.6-14.8); RED BLOOD COUNT 4.41 10^6/ul (4.20-5.40); WHITE BLOOD COUNT 9.11 K/ul (4.6-10.2)
[2024-02-28 05:25] LABS: ALANINE AMINOTRANSFERASE 39.2 U/L (0-35); ALBUMIN 3.24 g/dL (3.5-5.0); ALKALINE PHOSPHATASE 70.8 U/L (38-126); ASPARTATE AMINO TRANSFERASE 78.2 U/L (14-36); BILIRUBIN,TOTAL 0.35 mg/dL (0.2-1.3); BLOOD UREA NITROGEN 4.6 mg/dL (7-17); CALCIUM 6.78 mg/dL (8.4-10.2); CARBON DIOXIDE 26.1 mmol/L (22-30.0); CHLORIDE 107.5 mmol/L (98-107); CREATININE 0.7 mg/dL (0.60-1.30); GLUCOSE 123.1 mg/dL (74-106); LIPASE 281.7 U/L (23-300); POTASSIUM 2.91 mmol/L (3.5-5.1); SODIUM 141.7 mmol/L (134.5-145); TOTAL PROTEIN 6.66 g/dL (6.3-8.2)
[2024-02-28] MEDS: K-DUR PO ONE ×3 (09:20→20:18)
--- NOTE | 2024-02-28 09:43 | PCM.PROG ---
Date/Time Seen Date Seen by Provider: 02/28/24 Time Seen by Provider: 08:30 Provider Provider: Nich[facility]ers [facility] Chief Complaint Chief Complaint: SYMPTOMATIC HYPOKALEMIA, GASTROENTERITIS Subjective Subjective: Patient doesn't feel much better. States she's had 10-15 stools in last 24 hours. Denies blood in stool. Sometimes has some epigastric pain. Potassium mildly worse today. Objective Appearance: Positive No Apparent Distress, Alert and Oriented x3 and Ill-Appeari ng Chest/Lungs: Positive Symmetrical With Equal Breath Sounds and Clear to Auscultation Bilaterally Heart: Positive RRR and Pulses Normal GI/: Positive Soft, Nontender, Bowel Sounds Normal and No Distention Neurological: Positive Sensation Intact, Motor intact, Alert, Oriented and Other (generalized weakness) Additional Findings: Flat affect Vital Signs Vital Signs: Vital Signs: Last 24 Hours 02/27/24 10:00 02/27/24 10:00 02/27/24 11:00 Temperature 97.3 F L Temperature Source Temporal Artery Scan Pulse Rate 67 Respiratory Rate 18 Blood Pressure 107/83 Blood Pressure Mean 91 Blood Pressure Location Left Arm Blood Pressure Position Sitting O2 Sat by Pulse Oximetry 97 Oxygen Delivery Method Room Air Room Air Room Air Telemetry Type Telemetry Monitoring Telemetry Heart Rate EKG CA Interval EKG QRS Interval Telemetry Strip Reading 02/27/24 12:00 02/27/24 12:54 02/27/24 13:00 Temperature Temperature Source Pulse Rate Respiratory Rate Blood Pressure Blood Pressure Mean Blood Pressure Location Blood Pressure Position O2 Sat by Pulse Oximetry Oxygen Delivery Method Room Air Room Air Telemetry Type Remote Telemetry Telemetry Monitoring Continues Telemetry Heart Rate 79 EKG CA Interval 0.16 EKG QRS Interval 0.10 Telemetry Strip Reading SR 02/27/24 14:00 02/27/24 14:00 02/27/24 14:00 Temperature 96.9 F L Temperature Source Temporal Artery Scan Pulse Rate 73 Respiratory Rate 18 Blood Pressure 115/67 Blood Pressure Mean 83 Blood Pressure Location Left Arm Blood Pressure Position Sitting O2 Sat by Pulse Oximetry 98 Oxygen Delivery Method Room Air Room Air Room Air Telemetry Type Telemetry Monitoring Telemetry Heart Rate EKG CA Interval EKG QRS Interval Telemetry Strip Reading 02/27/24 15:00 02/27/24 15:50 02/27/24 17:00 Temperature Temperature Source Pulse Rate Respiratory Rate Blood Pressure Blood Pressure Mean Blood Pressure Location Blood Pressure Position O2 Sat by Pulse Oximetry Oxygen Delivery Method Room Air Room Air Room Air Telemetry Type Telemetry Monitoring Telemetry Heart Rate EKG CA Interval EKG QRS Interval Telemetry Strip Reading 02/27/24 17:31 02/27/24 17:52 02/27/24 19:00 Temperature 97.1 F L Temperature Source Temporal Artery Scan Pulse Rate 72 Respiratory Rate 18 Blood Pressure 120/62 Blood Pressure Mean 81 Blood Pressure Location Left Arm Blood Pressure Position Sitting O2 Sat by Pulse Oximetry 98 Oxygen Delivery Method Room Air Room Air Room Air Telemetry Type Telemetry Monitoring Telemetry Heart Rate EKG CA Interval EKG QRS Interval Telemetry Strip Reading 02/27/24 19:00 02/27/24 19:52 02/27/24 20:00 Temperature Temperature Source Pulse Rate Respiratory Rate Blood Pressure Blood Pressure Mean Blood Pressure Location Blood Pressure Position O2 Sat by Pulse Oximetry Oxygen Delivery Method Room Air Room Air Telemetry Type Remote Telemetry Telemetry Monitoring Continues Telemetry Heart Rate 69 EKG CA Interval 0.18 EKG QRS Interval 0.11 H Telemetry Strip Reading SR w/ BBB 02/27/24 21:00 02/27/24 21:05 02/27/24 22:00 Temperature 96.3 F L Temperature Source Temporal Artery Scan Pulse Rate 73 Respiratory Rate 18 Blood Pressure 133/77 Blood Pressure Mean 95 Blood Pressure Location Left Arm Blood Pressure Position Supine O2 Sat by Pulse Oximetry 99 Oxygen Delivery Method Room Air Room Air Room Air Telemetry Type Telemetry Monitoring Telemetry Heart Rate EKG CA Interval EKG QRS Interval Telemetry Strip Reading 02/27/24 23:00 02/28/24 00:00 02/28/24 01:00 Temperature Temperature Source Pulse Rate Respiratory Rate Blood Pressure Blood Pressure Mean Blood Pressure Location Blood Pressure Position O2 Sat by Pulse Oximetry Oxygen Delivery Method Room Air Room Air Room Air Telemetry Type Telemetry Monitoring Telemetry Heart Rate EKG CA Interval EKG QRS Interval Telemetry Strip Reading 02/28/24 01:00 02/28/24 02:00 02/28/24 02:00 Temperature Temperature Source Pulse Rate 71 Respiratory Rate 20 Blood Pressure Blood Pressure Mean Blood Pressure Location Blood Pressure Position O2 Sat by Pulse Oximetry Oxygen Delivery Method Room Air Room Air Telemetry Type Remote Telemetry Telemetry Monitoring Continues Telemetry Heart Rate 71 EKG CA Interval 0.18 EKG QRS Interval 0.10 Telemetry Strip Reading SR 02/28/24 03:00 02/28/24 04:00 02/28/24 05:00 Temperature Temperature Source Pulse Rate Respiratory Rate Blood Pressure Blood Pressure Mean Blood Pressure Location Blood Pressure Position O2 Sat by Pulse Oximetry Oxygen Delivery Method Room Air Room Air Room Air Telemetry Type Telemetry Monitoring Telemetry Heart Rate EKG CA Interval EKG QRS Interval Telemetry Strip Reading 02/28/24 05:21 02/28/24 06:00 02/28/24 07:00 Temperature 97.4 F L Temperature Source Temporal Artery Scan Pulse Rate 71 Respiratory Rate 18 Blood Pressure 123/73 Blood Pressure Mean 89 Blood Pressure Location Right Arm Blood Pressure Position Supine O2 Sat by Pulse Oximetry 100 Oxygen Delivery Method Room Air Room Air Room Air Telemetry Type Telemetry Monitoring Telemetry Heart Rate EKG CA Interval EKG QRS Interval Telemetry Strip Reading 02/28/24 07:00 02/28/24 08:00 02/28/24 09:00 Temperature Temperature Source Pulse Rate Respiratory Rate Blood Pressure Blood Pressure Mean Blood Pressure Location Blood Pressure Position O2 Sat by Pulse Oximetry Oxygen Delivery Method Room Air Room Air Telemetry Type Remote Telemetry Telemetry Monitoring Telemetry Heart Rate 70 EKG CA Interval 0.15 EKG QRS Interval 0.08 Telemetry Strip Reading NSR Lab Results Lab Results: Lab Results: Last 24 Hours 02/28/24 02/27/24 04:53 15:00 WBC 9.11 RBC 4.41 Hgb 12.5 Hct 40.0 MCV 90.7 MCH 28.3 MCHC 31.3 L RDW Coeff of Rubio 15.1 H Plt Count 231 Immature Gran % (Auto) 0.5 Neut % (Auto) 68.7 Lymph % (Auto) 20.6 [place] % (Auto) 7.0 Eos % (Auto) 2.7 Baso % (Auto) 0.5 Neut # (Auto) 6.2 Lymph # (Auto) 1.9 [place] # (Auto) 0.6 Eos # (Auto) 0.3 Baso # (Auto) 0.1 Immature Gran # (Auto) 0.1 Sodium 141.7 141.0 Potassium 2.91 L 3.06 L Chloride 107.5 H 108.6 H Carbon Dioxide 26.1 22.9 Anion Gap 11.01 12.56 BUN 4.6 L 7.1 Creatinine 0.70 0.73 Estimated GFR (MDRD) 86.00 82.00 BUN/Creatinine Ratio 6.57 9.72 Glucose 123.1 H 127.3 H Calcium 6.78 L 6.56 L Total Bilirubin 0.35 AST 78.2 H ALT 39.2 H Alkaline Phosphatase 70.8 Total Protein 6.66 Albumin 3.24 L Globulin 3.42 Albumin/Globulin Ratio 0.94 Lipase 281.7 315.1 H Additional Comments Additional Comments: I have independently reviewed and interpreted the labs/EKGs/imaging ordered during this hospital stay. I have reviewed outside records that are available in our EMR that pertain to medical stay including imaging/notes/labs from previous visits. Active Medications Active Medications: Medications Generic Name Dose Route Start Last Admin Trade Name Freq PRN Reason Stop Dose Admin Gabapentin 1,200 mg 02/27/24 09:30 02/28/24 09:19 Gabapentin 300 Mg Capsule PO 1,200 mg TID KAREEM Administration Metronidazole 500 mg in 100 mls @ 100 mls/hr 02/26/24 13:00 02/28/24 04:26 Flagyl 500 Mg/100 Ml IV 02/29/24 12:59 100 mls/hr Q8HR KAREEM Administration Ciprofloxacin/Dextrose 400 mg in 200 mls @ 200 mls/hr 02/26/24 21:00 02/28/24 08:43 Cipro 400 Mg/200 Ml D5w IV 02/29/24 20:59 200 mls/hr Q12HR KAREEM Administration Potassium Chloride/Dextrose/Sod Cl 1,000 mls @ 100 mls/hr 02/26/24 12:30 02/28/24 00:26 D5%-Ns-Kcl 20 Meq/L Iv Zita IV 100 mls/hr .Q10H KAREEM Administration Insulin Human Regular 0 unit 02/26/24 12:17 Insulin Regular, Human 100 Unit/Ml (10ml) Vial SUBCUT PRN PRN Hyperglycemia Protocol Plan Plan: 1. Severe Hypokalemia - Worsened today, additional replacement given, telemetry 2. Distal Colitis - Unchanged, continues to have diarrhea - checking stool studies to r/o c.diff or other etiology, clear liquids - continue to advance diet as tolerated, cipro and flagyl, trend lipase and potassium. Delay in obtained stool samples as they were regularly mixed with urine reportedly. 3. DM2 - chronic, hold oral agents accuchecks qid with ssi, ADA when able to resume full diet 4. Hyperlipidemia - chronic, continue home medications 5. GERD - chronic, continue home medications DVT Prophylaxis: Lovenox Make inpatient today, patient at risk of deteriorating, severe hypokalemia, and dehydration due to frequent stools. Also stool studies still pending. Review Statement Review Statement: I have personally discussed and reviewed the patient's visit/currently labs/imaging/decision making with Dr. Caruso, my supervising attending. Greater that 50 minutes spent with patient, 50% of the time spent with this patient was devoted to counseling and coordination of care.
[2024-02-28] MEDS: LOVENOX SUBCUT SCH (11:02)
[2024-02-28] MEDS: ZOFRAN 4 MG/2 ML IVP PRN (13:16)
[2024-02-29 05:48] VITALS: BP 122/63; PULSE 86; RESP 21; TEMP 97
[2024-02-29 07:24] LABS: ALBUMIN 3.15 g/dL (3.5-5.0); ALKALINE PHOSPHATASE 67.3 U/L (38-126); ASPARTATE AMINO TRANSFERASE 54.3 U/L (14-36); BILIRUBIN,TOTAL 0.38 mg/dL (0.2-1.3); BLOOD UREA NITROGEN 2.6 mg/dL (7-17); CALCIUM 7.32 mg/dL (8.4-10.2); CARBON DIOXIDE 27.9 mmol/L (22-30.0); CHLORIDE 108.9 mmol/L (98-107); CREATININE 0.7 mg/dL (0.60-1.30); POTASSIUM 3.92 mmol/L (3.5-5.1); SODIUM 142.6 mmol/L (134.5-145); TOTAL PROTEIN 6.82 g/dL (6.3-8.2)
--- NOTE | 2024-02-29 08:27 | DCSUM ---
Admission Date Admission Date: 02/26/24 Discharge Date Discharge Date: 02/29/24 Admission Diagnosis Admission Diagnosis: 1. Severe Hypokalemia 2. Distal Colitis 3. DM2 4. Hyperlipidemia 5. GERD Discharge Diagnosis Discharge Diagnosis: 1. Severe Hypokalemia - Resolved 2. Distal Colitis - Improving 3. DM2 - Chronic, stable 4. Hyperlipidemia - Chronic, stable 5. GERD - Chronic, stable Hospital Provider Hospital Provider[facility] LU[facility] Summary of History and Physical Summary of History and Physical: 58 yo female presented to the ER with N/V/D x 1 week. Reports symptoms started with diarrhea on Friday of last week and progressed to vomiting over the last 2 days. Denies any abdominal pain, fever that she is aware of, or other symptoms. Denies blood in stool or vomit. Denies any sick contacts or recent antibiotic use. In ER, she was found to have colitis via CT scan, lipase of 459, and potassium was found to be 2.1. Given potassium replacement and cipro. She was admitted to med/surg observation. Hospital Course Subjective: During stay, patient continued to have diarrhea. Stool studies were ordered to r/o other etilogy. Cdiff negative. Rotavirus pending. Treated colitis with cipro and flagyl. White count improved. Tolerating liquid diet well. Lipase trended down and within normal limits. Discussed to continue bland diet until illness runs its course. Avoid immodium. Hypokalemia resolved today after multiple replacements given including IV fluids with 20 mEq KCL added. No changes made to home medications. Sent Rx for cipro and flagyl. Vital Signs: Most Recent Vital Signs Temperature 97 F L 02/29/24 05:40 Temperature Source Temporal Artery Scan 02/29/24 05:40 Temperature Source Infrared 02/26/24 07:53 Pulse Rate 86 02/29/24 05:40 Respiratory Rate 21 H 02/29/24 05:40 Blood Pressure 122/63 02/29/24 05:40 Blood Pressure Mean 82 02/29/24 05:40 Blood Pressure Left Arm 108/62 02/26/24 11:33 Blood Pressure Location Left Arm 02/29/24 05:40 Blood Pressure Position Supine 02/29/24 05:40 O2 Sat by Pulse Oximetry 97 02/29/24 05:40 Oxygen Delivery Method Room Air 02/29/24 05:40 Oxygen Flow Rate 2 02/26/24 11:33 Height 5 ft 6 in 02/26/24 11:33 Weight 243 lb 8 oz 02/26/24 11:33 Telemetry Type Remote Telemetry 02/29/24 07:00 Telemetry Monitoring Continues 02/29/24 07:00 Telemetry Heart Rate 72 02/29/24 07:00 EKG AR Interval 0.17 02/29/24 07:00 EKG QRS Interval 0.9 H 02/29/24 07:00 Telemetry Strip Reading NSR 02/29/24 07:00 Lab Results Last 24 Hours: 02/29/24 05:45 Sodium 142.6 Potassium 3.92 Chloride 108.9 H Carbon Dioxide 27.9 Anion Gap 9.72 BUN 2.6 L Creatinine 0.70 Estimated GFR (MDRD) 86.00 BUN/Creatinine Ratio 3.71 Glucose 110.0 H Calcium 7.32 L Total Bilirubin 0.38 AST 54.3 H ALT 41.0 H Alkaline Phosphatase 67.3 Total Protein 6.82 Albumin 3.15 L Globulin 3.67 Albumin/Globulin Ratio 0.85 Lipase 216.2 Discharge Instructions Discharge Planning: Discharge Planning > 40 minutes If patient is discharged with left ventricular systolic dysfunction: NA Discharged with a beta zohra? [] If no, why not? [] Discharged with an ayde/arb? [] If no, why not? [] Diagnosis: Colitis, Hypokalemia Diet: [place], advance as tolerated Activity: as tolerated Follow-up with PCP this week. Medications: Ciprofloxacin take twice a day x 2 days Metronidazole take twice a day x 2 days Discharge Medications: Medications at Discharge (Home Meds & RX) atorvastatin 40 mg tablet 40 mg PO DAILY 02/26/24 dapagliflozin propanediol 10 mg tablet (Farxiga) 10 mg PO DAILY 02/26/24 ezetimibe 10 mg tablet 10 mg PO DAILY 02/26/24 loperamide 2 mg capsule (Imodium A-D) See Rx Instructions .Route .COMPLEX PRN loose stool #14 caps 02/26/24 metformin 500 mg tablet 500 mg PO BID 02/26/24 omeprazole 20 mg capsule,delayed release 20 mg PO DAILY 02/26/24 sertraline 50 mg tablet 50 mg PO DAILY 02/26/24 gabapentin 400 mg capsule 1,200 mg PO TID 02/27/24 Discharge Plan Discharge Discharge Orders: Discharge Patient (ONCE); Ordered 02/29/24 Ordered By: NEYDA MANDUJANO Activity Restrictions/Additional Instructions: Diagnosis: Colitis, Hypokalemia Diet: [place], advance as tolerated Activity: as tolerated Follow-up with PCP this week. Medications: Ciprofloxacin take twice a day x 2 days Metronidazole take twice a day x 2 days Instructions: Hypokalemia (IP), Colitis (ED) Patient Disposition: HOME WITH FAMILY CARE Prescriptions: New ciprofloxacin HCl [Cipro] 500 mg tablet 500 mg PO BID Qty: 4 0RF metronidazole 500 mg tablet 500 mg PO BID Qty: 4 0RF Continued omeprazole 20 mg capsule,delayed release(DR/EC) 20 mg PO DAILY atorvastatin 40 mg tablet 40 mg PO DAILY ezetimibe 10 mg tablet 10 mg PO DAILY sertraline 50 mg tablet 50 mg PO DAILY metformin 500 mg tablet 500 mg PO BID dapagliflozin propanediol [Farxiga] 10 mg tablet 10 mg PO DAILY gabapentin 400 mg capsule 1,200 mg PO TID Did you review [place] [employer] for ALL controlled substances?: No Discussed opioids are addictive and Narcan is available by prescription or from pharmacy.: No Condition: Stable
== END 2024-02-29 11:50 | disposition home or self-care (01) | DRG 639 ==
LOC: ED 07:48 → MEDSURG A 07:48 → OBSVTOIN 10:24 → MEDSURG A 11:35
PROVIDERS: ADMIT Hospitalist; ATTEND Nurse Practitioner Family
DX: K21.9 Gastro-esophageal reflux disease without esophagitis; E78.5 Hyperlipidemia, unspecified; K76.0 Fatty (change of) liver, not elsewhere classified; E11.42 Type 2 diabetes mellitus with diabetic polyneuropathy; K52.9 Noninfective gastroenteritis and colitis, unspecified; E11.65 Type 2 diabetes mellitus with hyperglycemia; E86.0 Dehydration; E87.6 Hypokalemia; Z87.891 Personal history of nicotine dependence

== ENCOUNTER 2024-03-01 22:14 | Observation (INO) ==
--- NOTE | 2024-03-01 22:35 | ED.PDOC ---
General ED Provider: Dr. TORRES RAMESH MD Chief Complaint: Weakness Stated Complaint: Patient with a history of type 2 diabetes, polyneuropathy, hospitalized on date 02/26/2020-02/2024 for acute acute dehydration, acute colitis and hypokalemia. The patient's abnormal lab test potassium 2.1 corrected to potassium 3.9 yesterday. Patient white blood cell count 16,000 corrected to white blood cell count of 9100 upon discharge yesterday. Patient states she is having diarrhea at home x 3 episodes emesis x 3 states she is taking nothing for diarrhea since been discharged. Patient also complains of crampy abdominal pain. Patient complains of generalized weakness and marked pain and numbness in her feet. Time Seen by Provider: 03/01/24 22:16 Mode of Arrival: Ambulance Information Source: Patient and EMT Exam Limitations: No limitations Nursing and Triage Documentation Reviewed and Agree: Yes What is Opioid Naive?: *Opioid Naive implies the patient is not already taking opioids or not chronically receiving opioids on a daily basis. *PRN dosing is not "usually" associated with tolerance. *Patients are at higher risk of over-sedation and aspiration. What is Opioid Tolerant?: *Opioid Tolerance implies less than the expected response to an opioid. *Acquired tolerance is defined by the patient taking 60mg of oral morphine daily (or equianalgesic dose of another opioid) for 1 week or more. *Often associated with chronic pain. *May take more than usual dose to achieve desired pain control. Review of Systems Review Of Systems Constitutional: Reports Weakness Eyes: Reports No symptoms Ears, Nose, Mouth, Throat: Reports No symptoms Respiratory: Reports No symptoms Cardiac: Reports No symptoms GI: Reports Abdominal pain, Nausea and Vomiting : Reports No symptoms Musculoskeletal: Reports Joint pain Skin: Reports No symptoms Neurological: Reports No symptoms Endocrine: Reports No symptoms Hematologic/Lymphatic: Reports No symptoms [facility] Medical History Fibromyalgia M79.7 - Fibromyalgia (ICD-10) TMJ (temporomandibular joint disorder) M26.609 - Unspecified temporomandibular joint disorder, unspecified side (ICD-10) Family History Mother Diabetes CVA (cerebral vascular accident) FATHER Lung cancer Social History Smoking and tobacco status: Former smoker Alcohol intake: never Surgical History History of brain surgery Z98.890 - Other specified postprocedural states (ICD-10) History of hysterectomy Z90.710 - Acquired absence of both cervix and uterus (ICD-10) Female Reproductive History Menstrual Hx Hysterectomy: Yes Physical Exam Physical Exam Appearance: Reports Well-appearing Ill-appearing: None Pain Distress: None Eyes: Reports TAM, EOMI and Conjunctiva clear ENT: Reports Ears normal and Nose normal Neck: Supple Respiratory: Reports Airway patent, Breath sounds clear and Breath sounds equal Cardiovascular: Reports RRR, Pulses normal, No rub and No murmur GI/: Reports Soft, Nontender, No masses and Bowel sounds normal Musculoskeletal: Reports Normal strength, ROM intact and No edema Skin: Reports Warm and Dry Neurological: Reports Sensation intact, Motor intact and Reflexes intact Psychiatric: Reports Affect appropriate and Mood appropriate Critical Care Note Critical Care Note Total Critical Care Time (mins): 0 Course Course 03/01/24 22:50 03/01/24 22:50 Orders, Labs, Meds: Lab Review 03/01/24 03/02/24 22:50 00:24 WBC 11.20 H RBC 4.82 Hgb 13.9 Hct 42.9 MCV 89.0 MCH 28.8 MCHC 32.4 RDW Coeff of Rubio 14.9 H Plt Count 260 Immature Gran % (Auto) 0.7 Neut % (Auto) 79.4 H Lymph % (Auto) 12.9 [place] % (Auto) 5.9 Eos % (Auto) 0.7 Baso % (Auto) 0.4 Neut # (Auto) 8.9 H Lymph # (Auto) 1.4 [place] # (Auto) 0.7 Eos # (Auto) 0.1 Baso # (Auto) 0.1 Immature Gran # (Auto) 0.1 Sodium 141.1 Potassium 3.54 Chloride 103.6 Carbon Dioxide 25.4 Anion Gap 15.64 BUN 3.3 L Creatinine 0.68 Estimated GFR (MDRD) 89.00 BUN/Creatinine Ratio 4.85 Glucose 137.4 H Calcium 7.94 L Magnesium 0.70 L* Total Bilirubin 0.60 AST 56.9 H ALT 48.8 H Alkaline Phosphatase 77.7 Troponin I 0.023 Total Protein 7.36 Albumin 3.76 Globulin 3.60 Albumin/Globulin Ratio 1.04 Lipase 230.2 SARS CoV-2 RNA Rapid SONU Negative Orders Category Date Time Status EKG-(ED ONLY) Stat CARDIO 03/01/24 22:37 Completed NPO REMINDER: IMAGING ONCE CARE 03/01/24 22:36 Completed Chief Dispatcher [ED ELECTRIC MOTOR WINDER APPLIED] .ONCE EMERGENCY 03/01/24 22:37 Active CBC W/ AUTO DIFF Stat LAB 03/01/24 22:50 Completed CMP [COMPREHENSIVE METABOLIC PANEL] Stat LAB 03/01/24 22:50 Completed LIPASE Stat LAB 03/01/24 22:50 Completed MAGNESIUM Stat LAB 03/01/24 22:50 Completed SARS COV-2 RNA RAPID SONU Stat LAB 03/02/24 00:24 Completed TROPONIN I Stat LAB 03/01/24 22:50 Completed URINALYSIS C & S IF INDICATED Stat LAB 03/01/24 22:35 Uncollected Acetaminophen Meds 03/01/24 23:37 Discontinued 1,000 mg in 100 ml IV ONCE Gabapentin [Neurontin] Meds 03/02/24 00:08 Discontinued 1,200 mg PO ONCE STA Magnesium Sulfate in Water [Magnesium Sulf 2 G/50 ml Meds 03/01/24 23:28 Active Bag] 2 gm in 50 ml IV ONCE Ondansetron HCl/Pf [Zofran 4 mg/2 ml] Meds 03/01/24 22:35 Discontinued 4 mg IVP ONCE ONE Pantoprazole Sodium [Protonix] Meds 03/01/24 22:35 Discontinued 40 mg IVP ONCE ONE Sodium Chloride 0.9% [Sodium Chloride] 1,000 ml Meds 03/01/24 22:35 Discontinued IV 500 mls/hr CT ABDOMEN/PELVIS W CONTRAST Stat RADS 03/01/24 22:[address] HEAD W/O CONTRAST Stat RADS 03/01/24 22:35 Completed Medications Generic Name Dose Route Start Last Admin Trade Name Freq PRN Reason Stop Dose Admin Gabapentin 1,200 mg 03/02/24 09:00 Gabapentin 300 Mg Capsule PO TID KAREEM MAGNESIUM SULFATE IN WATER 2 gm in 50 mls @ 25 mls/hr 03/01/24 23:28 03/02/24 00:18 Magnesium Sulf 2 G/50 Ml Bag IV 03/02/24 01:27 25 mls/hr ONCE ONE Administration Sodium Chloride 1,000 mls @ 30 mls/hr 03/02/24 01:00 Sodium Chloride IV .[id number] REPLACED BY [facility] Magnesium Oxide 800 mg 03/02/24 09:00 Magnesium Oxide 400 Mg Tablet PO DAILY KAREEM Metformin HCl 1,000 mg 03/02/24 07:30 Metformin Hcl 500 Mg Tablet PO BIDWM2 REPLACED BY [facility] Omeprazole 20 mg 03/02/24 09:00 Omeprazole 20 Mg Capsule.Dr PO DAILY KAREEM Ondansetron HCl 4 mg 03/02/24 00:51 Ondansetron Hcl/Pf 4 Mg/2 Ml Sdv IVP Q6H PRN Nausea / Vomiting Sertraline HCl 50 mg 03/02/24 09:00 Sertraline Hcl 50 Mg Tablet PO DAILY REPLACED BY [facility] Discontinued Medications Generic Name Dose Route Start Last Admin Trade Name Freq PRN Reason Stop Dose Admin Gabapentin 1,200 mg 03/02/24 00:08 03/02/24 00:16 Gabapentin 300 Mg Capsule PO 03/02/24 00:09 1,200 mg ONCE STA Administration Sodium Chloride 1,000 mls @ 500 mls/hr 03/01/24 22:35 03/01/24 23:27 Sodium Chloride IV 03/02/24 00:34 500 mls/hr .Q2H ONE Administration Acetaminophen 1,000 mg in 100 mls @ 400 mls/hr 03/01/24 23:37 03/01/24 23:43 Acetaminophen IV 03/01/24 23:51 400 mls/hr ONCE ONE Administration Ondansetron HCl 4 mg 03/01/24 22:35 03/01/24 23:27 Ondansetron Hcl/Pf 4 Mg/2 Ml Sdv IVP 03/01/24 22:36 4 mg ONCE ONE Administration Pantoprazole Sodium 40 mg 03/01/24 22:35 03/01/24 23:27 Pantoprazole Sodium 40 Mg Vial IVP 03/01/24 22:36 40 mg ONCE ONE Administration Vital Signs: Temp Pulse Resp BP Pulse Ox 03/01/24 22:15 97.7 F 70 20 117/54 L 100 Discharge Plan Discharge Patient Disposition: PLACED OBSERVATION Discharge Problem: Adult failure to thrive, Hypomagnesemia Did you review [place] [employer] SURGE[employer] for ALL controlled substances?: Not Applicable ED Provider: TORRES RAMESH Condition: Stable Physician Progress Note: Patient with a history of polyneuropathy, type 2 diabetes, recently hospitalized and discharged hospital yesterday for treatment of acute colitis dehydration hypokalemia. Patient now complains of increasing weakness and pain lower extremities from her probably neuropathy. Patient's daughter spoke on phone stated that she is unable to care for her mother requested the patient was hospitalized in nursing facility. Patient denies headache, blurred vision, chest pain, dyspnea, diaphoresis, palpitations. Laboratory data CBC, CMP have been reviewed and are all within normal limits with the exception of the magnesium 0.7 IV fluids with saline 1 L at 500 mL/hour, Patient received magnesium sulfate 2 g IV piggyback over [address] scan without intravenous contrast interpretation by the radiologist consistent with no acute intracranial findings. There is a right frontal approach ventriculostomy catheter the [employer]OUSING [employer]OR shunt reservoir at the right frontal scalp and HOUSING INS[employer]OR shunt catheter tubing coursing along the right posterior lateral neck. There is no intracranial hemorrhage, no hydrocephalus, midline shift, no evidence of infarct. Abdominal pelvic CT scan with IV contrast rotation per radiologist is consistent with a small right pleural effusion there is a right-sided pleural catheter partially image there is a mild right hydronephrosis appears unchanged no renal stones. The bowel mesentery peritoneum no bowel obstruction normal appendix no ascites or free air. There are small bilateral renal cyst. 1200 previous surgery.. Colitis hypokalemia she is taking. 2244-EKG interpretation by myself consistent with normal sinus rhythm with PACs, left GERD prophy there is normocytic ST-T wave changes noted. There is no ectopy there is no prolongation.. Differential diagnosis: 1) failure to thrive 2) polyneuropathy 3) hypomagnesemia Discussed with hospitalist Nichole Mayers at 0014 for observation
[2024-03-01 23:05] LABS: BASOPHILS # (AUTO) 0.1 K/uL (0-0.2); BASOPHILS % (AUTO) 0.4 % (0.0-3.0); EOSINOPHILS # (AUTO) 0.1 K/ul (0.0-0.7); EOSINOPHILS % (AUTO) 0.7 % (0.0-7.0); HEMATOCRIT 42.9 % (37.0-47.0); HEMOGLOBIN 13.9 g/dl (12.0-16.0); IMMATURE GRANULOCYTE # (AUTO) 0.1 (0.0-1.0); IMMATURE GRANULOCYTE % (AUTO) 0.7 % (0.0-5.0); LYMPHOCYTES # (AUTO) 1.4 K/uL (0.60-3.4); LYMPHOCYTES % (AUTO) 12.9 (10.0-50.0); MEAN CORPUSCULAR HEMOGLOBIN 28.8 pg (27.0-31.0); MEAN CORPUSCULAR HGB CONC 32.4 (31.8-35.4); MONOCYTES # (AUTO) 0.7 K/uL (0.4-2.0); MONOCYTES % (AUTO) 5.9 (0-10); NEUTROPHILS # (AUTO) 8.9 K/ul (2.0-6.9); NEUTROPHILS % (AUTO) 79.4 % (42.2-75.2); PLATELET COUNT 260 10^3/uL (140-440); RDW COEFFICIENT OF VARIATION 14.9 % (11.6-14.8); RED BLOOD COUNT 4.82 10^6/ul (4.20-5.40)
[2024-03-01 23:15] LABS: ALBUMIN 3.76 g/dL (3.5-5.0); ALKALINE PHOSPHATASE 77.7 U/L (38-126); ASPARTATE AMINO TRANSFERASE 56.9 U/L (14-36); BILIRUBIN,TOTAL 0.6 mg/dL (0.2-1.3); BLOOD UREA NITROGEN 3.3 mg/dL (7-17); CALCIUM 7.94 mg/dL (8.4-10.2); CARBON DIOXIDE 25.4 mmol/L (22-30.0); CHLORIDE 103.6 mmol/L (98-107); CREATININE 0.68 mg/dL (0.60-1.30); GLUCOSE 137.4 mg/dL (74-106); LIPASE 230.2 U/L (23-300); POTASSIUM 3.54 mmol/L (3.5-5.1); SODIUM 141.1 mmol/L (134.5-145); TOTAL PROTEIN 7.36 g/dL (6.3-8.2)
[2024-03-01 23:22] LABS: ALANINE AMINOTRANSFERASE 48.8 U/L (0-35)
[2024-03-01 23:23] LABS: MAGNESIUM 0.7 mg/dL (1.6-2.3)
[2024-03-01] MEDS: SODIUM CHLORIDE 1,000 ML IV ONE (23:27)
[2024-03-01] MEDS: PROTONIX IVP ONE (23:27)
[2024-03-01] MEDS: ZOFRAN 4 MG/2 ML IVP ONE (23:27)
[2024-03-01] MEDS: ACETAMINOPHEN 1,000 MG/100 ML BAG IV ONE (23:43)
--- NOTE | 2024-03-01 23:44 | CT ---
EXAM: CT HEAD WITHOUT CONTRAST TECHNIQUE: Noncontrast CT of the head with multiple reformats. HISTORY: Generalized weakness. COMPARISON: None available. FINDINGS: Right frontal approach ventriculostomy catheter. [employer] shunt reservoir at the right frontal scalp and V P shunt catheter tubing courses along the right posterolateral neck. No acute intracranial hemorrhage. No hydrocephalous. No midline shift. No evidence of infarct. No brain herniation. Patent basilar cisterns. Right frontal wilian hole. No acute osseous abnormality. Orbits are unremarkable. Sinuses and mastoid air cells are clear. IMPRESSION: No acute intracranial finding. Shunted ventricles appear normal in size, though no prior exam is available for comparison. All CT scans are performed using dose optimization techniques as appropriate to the performed exam an d include at least one of the following: Automated exposure control, adjustment of the mA and/or kV according t o size, and the use of iterative reconstruction technique.
--- NOTE | 2024-03-01 23:54 | CT ---
EXAM: CT OF THE ABDOMEN AND PELVIS WITH CONTRAST TECHNIQUE: CT of the abdomen and pelvis was performed with contrast. Multiplanar reformats were perf ormed. HISTORY: The abdominal pain and vomiting. COMPARISON: CT abdomen pelvis 02/26/2024. FINDINGS: Imaged lower thorax: Right-sided pleural catheter partially imaged. Trace right pleural effusion. Liver: Stable focal fatty infiltration along the falciform ligament. Gallbladder/Bile Ducts: Unchanged mild chronic dilation of the common bile duct, probably physiologic related to age and prior cholecystectomy. Spleen: Stable 2.6 cm hypodense lesion in the spleen, probably a hemangioma. Pancreas: Mild atrophy. 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 Kidneys/Ureters: Mild right hydronephrosis. No stones. Small bilateral renal cysts. Bowel/mesentery/peritoneum: No bowel obstruction. Normal appendix. No ascites or free air. Retroperitoneum/vessels: No aortic aneurysm. No adenopathy. Pelvis: Post hysterectomy. Bones/body wall: Small fat containing ventral hernias. No acute osseous abnormality. Multilevel deg enerative spondylosis and mild levoconvex scoliosis. IMPRESSION: Small right pleural effusion. Right-sided pleural catheter partially imaged. Mild right hydronephrosis appears unchanged. No renal stones. Incidental and postsurgical findings as described above, similar to that seen on the previous exam. All CT scans are performed using dose optimization techniques as appropriate to the performed exam an d include at least one of the following: Automated exposure control, adjustment of the mA and/or kV according t o size, and the use of iterative reconstruction technique.
[2024-03-02] MEDS: NEURONTIN PO STA (00:16)
[2024-03-02] MEDS: MAGNESIUM SULF 2 G/50 ML BAG 2 GM/50 ML PIGGYBACK IV ONE ×2 (00:18→08:45)
[2024-03-02 00:30] LABS: SARS COV-2 RNA RAPID NAAT NEGATIVE (NEGATIVE)
[2024-03-02] MEDS ORDERED: ZOFRAN 4 MG/2 ML IVP PRN (00:51)
[2024-03-02 01:32] LABS: BILIRUBIN,URINE Negative (NEGATIVE); CLARITY,URINE Clear (CLEAR); COLOR,URINE Yellow (YELLOW); GLUCOSE, URINE (UA) 2+ (NEGATIVE); KETONES,URINE Trace (NEGATIVE); LEUKOCYTE ESTERASE ,URINE Trace (NEGATIVE); NITRITE,URINE Negative (NEGATIVE); PH,URINE 5.5 (5-9); PROTEIN,URINE Negative (NEGATIVE); URINE, BLOOD Negative (NEGATIVE); UROBILINOGEN,URINE 0.2 (0.2)
[2024-03-02 01:35] LABS: SQUAMOUS EPITHELIAL CELL,UR 0-2 (0-5)
[2024-03-02 01:36] LABS: BACTERIA,URINE TRACE (NOT PRESENT)
[2024-03-02 01:50] VITALS: BMI 40.8
[2024-03-02] MEDS: SODIUM CHLORIDE 1,000 ML IV SCH (02:11)
[2024-03-02 06:29] LABS: BASOPHILS % (AUTO) 0.4 % (0.0-3.0); EOSINOPHILS # (AUTO) 0.1 K/ul (0.0-0.7); EOSINOPHILS % (AUTO) 1.4 % (0.0-7.0); HEMATOCRIT 37.6 % (37.0-47.0); IMMATURE GRANULOCYTE % (AUTO) 0.4 % (0.0-5.0); LYMPHOCYTES # (AUTO) 1.9 K/uL (0.60-3.4); LYMPHOCYTES % (AUTO) 20.9 (10.0-50.0); MEAN CORPUSCULAR HEMOGLOBIN 28.8 pg (27.0-31.0); MEAN CORPUSCULAR HGB CONC 31.9 (31.8-35.4); MEAN CORPUSCULAR VOLUME 90.2 fl (81.0-99.0); MONOCYTES # (AUTO) 0.9 K/uL (0.4-2.0); MONOCYTES % (AUTO) 9.7 (0-10); NEUTROPHILS # (AUTO) 6.1 K/ul (2.0-6.9); NEUTROPHILS % (AUTO) 67.2 % (42.2-75.2); PLATELET COUNT 199 10^3/uL (140-440); RDW COEFFICIENT OF VARIATION 14.9 % (11.6-14.8); RED BLOOD COUNT 4.17 10^6/ul (4.20-5.40); WHITE BLOOD COUNT 9.06 K/ul (4.6-10.2)
[2024-03-02 06:41] LABS: ALANINE AMINOTRANSFERASE 31.7 U/L (0-35); ALBUMIN 2.89 g/dL (3.5-5.0); ALKALINE PHOSPHATASE 65.3 U/L (38-126); ASPARTATE AMINO TRANSFERASE 36.3 U/L (14-36); BILIRUBIN,TOTAL 0.37 mg/dL (0.2-1.3); BLOOD UREA NITROGEN 3.1 mg/dL (7-17); CALCIUM 7.1 mg/dL (8.4-10.2); CARBON DIOXIDE 29.3 mmol/L (22-30.0); CHLORIDE 105.3 mmol/L (98-107); CREATININE 0.69 mg/dL (0.60-1.30); MAGNESIUM 1.38 mg/dL (1.6-2.3); POTASSIUM 2.94 mmol/L (3.5-5.1); SODIUM 140.7 mmol/L (134.5-145)
[2024-03-02] MEDS: GLUCOPHAGE PO SCH (08:39)
[2024-03-02] MEDS: NEURONTIN PO SCH (08:40)
[2024-03-02] MEDS: ZOLOFT PO SCH (08:41)
[2024-03-02] MEDS: MAG-OX PO SCH (08:41)
[2024-03-02] MEDS: K-DUR PO ONE (08:45)
[2024-03-02] MEDS: FLAGYL PO SCH (08:48)
[2024-03-02] MEDS: CIPRO PO SCH (08:49)
[2024-03-02] MEDS: PRILOSEC PO SCH (08:49)
--- NOTE | 2024-03-02 11:40 | PCM ---
Date of Service Date Seen by Provider: 03/02/24 Time Seen by Provider: 08:50 Admit Day/Time Admission Date: 03/02/24 Admission Time: 00:51 Reason for Admission Chief Complaint: FAILURE TO THRIVE/HYPOMAGNESMIA Hospital Provider Hospital Provider: ANA KENNEDY PA-C, [facility] History of Present Illness History of Present Illness: Patient is a 58 year old female who was recently hospitalized and discharged on 02/28 due to distal colitis. She was discharged with cipro and flagyl. She felt very weak once at home and was unable to perform her ADLs. She has continued to have some diarrhea but it is overall improved. No abd pain. Overall just feels too weak to be independent at home. In the ER patient was noted to have a megnesium level of 0.7. CT abd/pelvis no longer showing colitis. Patient given magnesium in the ER. Admitted to [facility]. Of note patient has a RN INTERNATIONAL shunt due to chiari malformation per patient. Case Discussed With Case Discussed With: Patient's case was discussed with the ER Physicians, Dr. Breen. [facility] Medical History Fibromyalgia M79.7 - Fibromyalgia (ICD-10) TMJ (temporomandibular joint disorder) M26.609 - Unspecified temporomandibular joint disorder, unspecified side (ICD-10) Surgical History History of brain surgery Z98.890 - Other specified postprocedural states (ICD-10) History of hysterectomy Z90.710 - Acquired absence of both cervix and uterus (ICD-10) Family History Mother Diabetes CVA (cerebral vascular accident) FATHER Lung cancer Social History Smoking and tobacco status: Former smoker Alcohol intake: never Allergies Allergies Allergy/AdvReac Type Severity Reaction Status Date / Time No Known Allergies Allergy Verified 03/01/24 22:46 Current Medications Home Medications atorvastatin 40 mg tablet 40 mg PO DAILY 02/26/24 [History Confirmed 03/01/24 Last Taken Unknown] dapagliflozin propanediol 10 mg tablet (Farxiga) 10 mg PO DAILY 02/26/24 [History Confirmed 03/01/24 Last Taken Unknown] ezetimibe 10 mg tablet 10 mg PO DAILY 02/26/24 [History Confirmed 03/01/24 Last Taken Unknown] metformin 500 mg tablet 1,000 mg PO BID 02/26/24 [History Confirmed 03/01/24 Last Taken Unknown] omeprazole 20 mg capsule,delayed release 20 mg PO DAILY 02/26/24 [History Confirmed 03/01/24 Last Taken Unknown] sertraline 50 mg tablet 50 mg PO DAILY 02/26/24 [History Confirmed 03/01/24 Last Taken Unknown] gabapentin 400 mg capsule 1,200 mg PO TID 02/27/24 [History Confirmed 03/01/24 Last Taken Unknown] ciprofloxacin HCl 500 mg tablet (Cipro) 500 mg PO BID #4 tabs 02/29/24 [Rx Confirmed 03/01/24 Last Taken Unknown] metronidazole 500 mg tablet 500 mg PO BID #4 tabs 02/29/24 [Rx Confirmed 03/01/24 Last Taken Unknown] Home Ciprofloxacin (Ciprofloxacin Hcl 500 Mg Tablet) 500 mg PO BIDCIPRO2 [facility] Stop: 03/05/24 08:44 Last Admin: 03/02/24 08:49 Dose: 500 mg Enoxaparin Sodium (Enoxaparin Sodium 40 Mg/0.4 Ml Syr) 40 mg SUBCUT DAILY [facility] Gabapentin (Gabapentin 300 Mg Capsule) 1,200 mg PO TID [facility] Last Admin: 03/02/24 14:01 Dose: 1,200 mg Insulin Human Lispro (Insulin Lispro 100 Unit/Ml (10 Ml Vial)) 0 unit SUBCUT PRN PRN; Protocol PRN Reason: Hyperglycemia Loperamide HCl (Loperamide Hcl 2 Mg Tablet) 2 mg PO AFTER LOOSE STOOLS PRN PRN Reason: Diarrhea Magnesium Oxide (Magnesium Oxide 400 Mg Tablet) 800 mg PO DAILY [facility] Last Admin: 03/02/24 08:41 Dose: 800 mg Metformin HCl (Metformin Hcl 500 Mg Tablet) 1,000 mg PO BIDWM2 [facility] Last Admin: 03/02/24 08:39 Dose: Not Given Metronidazole (Metronidazole 250 Mg Tablet) 500 mg PO Q8HR [facility] Stop: 03/05/24 08:44 Last Admin: 03/02/24 13:38 Dose: 500 mg Omeprazole (Omeprazole 20 Mg Capsule.Dr) 20 mg PO QDAC2 [facility] Last Admin: 03/02/24 08:49 Dose: 20 mg Ondansetron HCl (Ondansetron Hcl/Pf 4 Mg/2 Ml Sdv) 4 mg IVP Q6H PRN PRN Reason: Nausea / Vomiting Sertraline HCl (Sertraline Hcl 50 Mg Tablet) 50 mg PO DAILY [facility] Last Admin: 03/02/24 08:41 Dose: 50 mg Sodium Chloride (0.9% Sodium Chloride 10 Ml Disp.Syrin) 1 syr IVF Q8HR [facility] Discontinued Medications Gabapentin (Gabapentin 300 Mg Capsule) 1,200 mg PO ONCE STA Stop: 03/02/24 00:09 Last Admin: 03/02/24 00:16 Dose: 1,200 mg Sodium Chloride (Sodium Chloride) 1,000 mls @ 500 mls/hr IV .Q2H ONE Stop: 03/02/24 00:34 Last Infusion: 03/02/24 07:01 Dose: Infused MAGNESIUM SULFATE IN WATER (Magnesium Sulf 2 G/50 Ml Bag) 2 gm in 50 mls @ 25 mls/hr IV ONCE ONE Stop: 03/02/24 01:27 Last Admin: 03/02/24 00:18 Dose: 25 mls/hr Acetaminophen (Acetaminophen) 1,000 mg in 100 mls @ 400 mls/hr IV ONCE ONE Stop: 03/01/24 23:51 Last Admin: 03/01/24 23:43 Dose: 400 mls/hr Sodium Chloride (Sodium Chloride) 1,000 mls @ 30 mls/hr IV .[id number] [facility] Last Infusion: 03/02/24 12:04 Dose: Infused MAGNESIUM SULFATE IN WATER (Magnesium Sulf 2 G/50 Ml Bag) 2 gm in 50 mls @ 25 mls/hr IV ONCE ONE Stop: 03/02/24 10:23 Last Admin: 03/02/24 08:45 Dose: 25 mls/hr Loperamide HCl (Loperamide Hcl 2 Mg Tablet) 4 mg PO ONCE STA Stop: 03/02/24 13:51 Last Admin: 03/02/24 14:06 Dose: 4 mg Ondansetron HCl (Ondansetron Hcl/Pf 4 Mg/2 Ml Sdv) 4 mg IVP ONCE ONE Stop: 03/01/24 22:36 Last Admin: 03/01/24 23:27 Dose: 4 mg Pantoprazole Sodium (Pantoprazole Sodium 40 Mg Vial) 40 mg IVP ONCE ONE Stop: 03/01/24 22:36 Last Admin: 03/01/24 23:27 Dose: 40 mg Potassium Chloride (Potassium Chloride 20 Meq Tab) 40 meq PO ONCE ONE Stop: 03/02/24 08:25 Last Admin: 03/02/24 08:45 Dose: 40 meq Opioid Naive vs. Tolerant Does Patient Take Opioids?: No Is Patient Opioid Naive?: Yes What is Opioid Naive?: *Opioid Naive implies the patient is not already taking opioids or not chronically receiving opioids on a daily basis. *PRN dosing is not "usually" associated with tolerance. *Patients are at higher risk of over-sedation and aspiration. Is Patient Opioid Tolerant?: No What is Opioid Tolerant?: *Opioid Tolerance implies less than the expected response to an opioid. *Acquired tolerance is defined by the patient taking 60mg of oral morphine daily (or equianalgesic dose of another opioid) for 1 week or more. *Often associated with chronic pain. *May take more than usual dose to achieve desired pain control. Review of Systems Constitutional: Reports Fatigue and Weakness; Denies Fever Head: Reports Normocephalic and Atraumatic Cardiovascular: Reports Edema; Denies Chest pain or Chest Pressure Respiratory: Denies Cough or Shortness of air Gastrointestinal: Reports Nausea and Diarrhea; Denies Vomiting, Abdominal pain or Melena Genitourinary: Denies Dysuria or Frequency Dermatologic: Denies Rashes Neurological: Reports Weakness and Problems with walking Physical examination Most Recent Vital Signs: Most Recent Vital Signs Temperature 97.6 F 03/02/24 10:00 Temperature Source Temporal Artery Scan 03/02/24 10:00 Temperature Source Oral 03/01/24 22:15 Pulse Rate 63 03/02/24 10:00 Respiratory Rate 15 03/02/24 10:00 Blood Pressure 129/87 03/02/24 10:00 Blood Pressure Mean 101 03/02/24 10:00 Blood Pressure Left Arm 141/78 03/02/24 01:04 Blood Pressure Location Left Arm 03/02/24 10:00 Blood Pressure Position Sitting 03/02/24 10:00 O2 Sat by Pulse Oximetry 97 03/02/24 10:00 Oxygen Delivery Method Room Air 08/06/24 11:00 Oxygen Flow Rate 2 03/02/24 07:50 Height 5 ft 6 in 03/02/24 01:04 Weight 253 lb 4 oz 03/02/24 01:04 Telemetry Type Remote Telemetry 03/02/24 07:00 Telemetry Monitoring Continues 03/02/24 07:00 Telemetry Heart Rate 73 03/02/24 07:00 EKG [place] Interval 0.16 03/02/24 07:00 EKG QRS Interval 0.10 03/02/24 07:00 Telemetry Strip Reading sr 03/02/24 07:00 Appearance: Positive No Apparent Distress and Alert and Oriented x3 Skin: Positive Pine, Warm, Good Turgor and Good Color; Negative Rashes HEENT: Positive Normocephalic and Atraumatic Neck: Positive Supple and Midline Trachea Chest/Lungs: Positive Clear to Auscultation Bilaterally; Negative Rales, Rhonci or Wheezes Heart: Positive RRR GI/: Positive Soft, Nontender, Bowel Sounds Normal and No Distention Neurological: Positive Cranial Nerves Intact, Alert and Oriented; Negative Muscle Strength 5/5 in Upper and Lower Extremities Bilaterally (+generalized weakness ) Psychiatric: Positive Oriented x4, Appropriate Mood and Appropriate Affect Labs This Visit Labs This Visit: Labs This Visit 03/01/24 03/02/24 03/02/24 22:50 00:24 01:24 WBC 11.20 H RBC 4.82 Hgb 13.9 Hct 42.9 MCV 89.0 MCH 28.8 MCHC 32.4 RDW Coeff of Rubio 14.9 H Plt Count 260 Immature Gran % (Auto) 0.7 Neut % (Auto) 79.4 H Lymph % (Auto) 12.9 Bullock % (Auto) 5.9 Eos % (Auto) 0.7 Baso % (Auto) 0.4 Neut # (Auto) 8.9 H Lymph # (Auto) 1.4 Bullock # (Auto) 0.7 Eos # (Auto) 0.1 Baso # (Auto) 0.1 Immature Gran # (Auto) 0.1 Sodium 141.1 Potassium 3.54 Chloride 103.6 Carbon Dioxide 25.4 Anion Gap 15.64 BUN 3.3 L Creatinine 0.68 Estimated GFR (MDRD) 89.00 BUN/Creatinine Ratio 4.85 Glucose 137.4 H Calcium 7.94 L Magnesium 0.70 L* Total Bilirubin 0.60 AST 56.9 H ALT 48.8 H Alkaline Phosphatase 77.7 Troponin I 0.023 Total Protein 7.36 Albumin 3.76 Globulin 3.60 Albumin/Globulin Ratio 1.04 Lipase 230.2 Urine Color Yellow Urine Clarity Clear Urine pH 5.5 Ur Specific [place] 1.010 Urine Protein Negative Urine Glucose (UA) 2+ H Urine Ketones Trace H Urine Blood Negative Urine Nitrite Negative Urine Bilirubin Negative Urine Urobilinogen 0.2 Ur Leukocyte Esterase Trace H Urine Microscopic RBC 2-5 Urine Microscopic WBC 2-5 Ur Squamous Epith Cells 0-2 Urine Bacteria Trace SARS CoV-2 RNA Rapid SONU Negative 03/02/24 06:24 WBC 9.06 RBC 4.17 L Hgb 12.0 Hct 37.6 MCV 90.2 MCH 28.8 MCHC 31.9 RDW Coeff of Rubio 14.9 H Plt Count 199 Immature Gran % (Auto) 0.4 Neut % (Auto) 67.2 Lymph % (Auto) 20.9 Bullock % (Auto) 9.7 Eos % (Auto) 1.4 Baso % (Auto) 0.4 Neut # (Auto) 6.1 Lymph # (Auto) 1.9 Bullock # (Auto) 0.9 Eos # (Auto) 0.1 Baso # (Auto) 0.0 Immature Gran # (Auto) 0.0 Sodium 140.7 Potassium 2.94 L Chloride 105.3 Carbon Dioxide 29.3 Anion Gap 9.04 BUN 3.1 L Creatinine 0.69 Estimated GFR (MDRD) 87.00 BUN/Creatinine Ratio 4.49 Glucose 106.0 Calcium 7.10 L Magnesium 1.38 L Total Bilirubin 0.37 AST 36.3 H ALT 31.7 Alkaline Phosphatase 65.3 Troponin I Total Protein 6.00 L Albumin 2.89 L Globulin 3.11 Albumin/Globulin Ratio 0.92 Lipase Urine Color Urine Clarity Urine pH Ur Specific [place] Urine Protein Urine Glucose (UA) Urine Ketones Urine Blood Urine Nitrite Urine Bilirubin Urine Urobilinogen Ur Leukocyte Esterase Urine Microscopic RBC Urine Microscopic WBC Ur Squamous Epith Cells Urine Bacteria SARS CoV-2 RNA Rapid SONU Imaging Imaging: EXAM: CT OF THE ABDOMEN AND PELVIS WITH CONTRAST TECHNIQUE: CT of the abdomen and pelvis was performed with contrast. Multiplanar reformats were performed. HISTORY: The abdominal pain and vomiting. COMPARISON: CT abdomen pelvis 02/26/2024. FINDINGS: Imaged lower thorax: Right-sided pleural catheter partially imaged. Trace right pleural effusion. Liver: Stable focal fatty infiltration along the falciform ligament. Gallbladder/Bile Ducts: Unchanged mild chronic dilation of the common bile duct, probably physiologic related to age and prior cholecystectomy. Spleen: Stable 2.6 cm hypodense lesion in the spleen, probably a hemangioma. Pancreas: Mild atrophy. 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 Kidneys/Ureters: Mild right hydronephrosis. No stones. Small bilateral renal cysts. Bowel/mesentery/peritoneum: No bowel obstruction. Normal appendix. No ascites or free air. Retroperitoneum/vessels: No aortic aneurysm. No adenopathy. Pelvis: Post hysterectomy. Bones/body wall: Small fat containing ventral hernias. No acute osseous abnormality. Multilevel degenerative spondylosis and mild levoconvex scoliosis. IMPRESSION: Small right pleural effusion. Right-sided pleural catheter partially imaged. Mild right hydronephrosis appears unchanged. No renal stones. Incidental and postsurgical findings as described above, similar to that seen on the previous exam. EXAM: CT HEAD WITHOUT CONTRAST TECHNIQUE: Noncontrast CT of the head with multiple reformats. HISTORY: Generalized weakness. COMPARISON: None available. FINDINGS: Right frontal approach ventriculostomy catheter. RN INTERNATIONAL shunt reservoir at the right frontal scalp and RN INTERNATIONAL shunt catheter tubing courses along the right posterolateral neck. No acute intracranial hemorrhage. No hydrocephalous. No midline shift. No evidence of infarct. No brain herniation. Patent basilar cisterns. Right frontal wilian hole. No acute osseous abnormality. Orbits are unremarkable. Sinuses and mastoid air cells are clear. IMPRESSION: No acute intracranial finding. Shunted ventricles appear normal in size, though no prior exam is available for comparison. Review Statement Review Statement: I have independently reviewed and interpreted the labs/EKGs/imaging that were ordered by the ER provider. I have reviewed all outside records that are avai lable currently in our EMR including imaging/notes/labs from previous visits. Plan Plan: 1. Hypomagnesemia, severe - Improved, giving another 2 gm rider today 2. Hypokalemia in setting of diarrhea - Cont to replace 3. Acute distal colitis - Improved. Finish oral abx cipro and flagyl 4. DMt2 - Hold metformin. Accuchecks achs, ss humalog 5. GERD - Cont home meds 6. Hyperlipidemia - Cont home meds 7. LLE edema - US ordered to r/o dvt DVT Prophylaxis: Lovenox Time Spent: Greater than 80 minutes spent with patient, 50% of the time spent with this patient was devoted to counseling and coordination of care. [facility]annin minutes spent discussing advance care planning. Admit to: Obs Dispo: Awaiting insurance for swingbed Discussed Plan of Care with Dr. Micheal Caruso. Medications Medication Orders: Medications Ordered Category Date Time Status Ciprofloxacin HCl [Cipro] Meds 03/02/24 08:45 Active 500 mg PO BIDCIPRO2 Gabapentin [Neurontin] Meds 03/02/24 09:00 Active 1,200 mg PO TID Magnesium Oxide [Mag-Ox] Meds 03/02/24 09:00 Active 800 mg PO DAILY Metformin HCl [Glucophage] Meds 03/02/24 07:30 Hold 1,000 mg PO BIDWM2 Metronidazole [Flagyl] Meds 03/02/24 08:45 Active 500 mg PO Q8HR Omeprazole [Prilosec] Meds 03/02/24 09:00 Active 20 mg PO QDAC2 Ondansetron HCl/Pf [Zofran 4 mg/2 ml] Meds 03/02/24 00:51 Active 4 mg IVP Q6H PRN Sertraline HCl [Zoloft] Meds 03/02/24 09:00 Active 50 mg PO DAILY
[2024-03-02] MEDS ORDERED: HUMALOG (3 ML) SUBCUT PRN (11:59)
[2024-03-02] MEDS ORDERED: HUMALOG (10 ML VIAL) SUBCUT PRN (12:11)
--- NOTE | 2024-03-02 12:15 | RS.PTINEVL ---
Subjective Patient information Date of Evaluation: 03/02/24 Date of Arrival on Unit: 03/02/24 Admitted From:: Emergency Dept Diagnosis: failure to thrive, decreased functional ability, declined ambulation. Usual Living Arrangement: DAUGHTER Living Arrangement Comments: LIVES WITH DAUGHTER Medical History: Diabetes Medical History Comments:: polyneuropathy, Fibromyalgia, Hysterectomy, brain surgery- has MILL WORKER shunt Medications: See MAR Subjective Information/ Patient Comments:: Patient reports feeling week. State she usually uses a cane at home and when outside the home. Reports she may get to stay here or go to a senior living for therapy to get stronger. She stated she would be more comfortable trying a walker to walk, when given a choice between her cane or a rolling walker. After ambulating, she stated she liked the walker. She has one at home but it is not in good condition. She has no stairs a t home. Level of function Prior to this admission, the patient could do the following:: Independent Selfcare, Independent ADL's and Independent Ambulation Current Level of Function: Partially Dependent Current Equipment Used at Home: CANE Interventions Objective Patient Orientation: Person, Place, Time and Situation Current Interventions: IV's Observation: Patient presents lying in bed watching TV. Range of Motion ROM Right Upper Extremity AROM: WFL's Left Upper Extremity AROM: WFL's Right Lower Extremity AROM: WFL's Left Lower Extremity AROM: WFL's Muscle Strength Muscle Strength Comments:: Bilateral hip strength grossly 4-/5, quads 4-/5, HS 4/5. Ankle strength 4 to 4+/5. Sensation Sensation Comments: Pt c/o tingling/ numbness knees down to the feet, but intact to light touch Balance Sitting Balance and Reactions Static Sitting Balance: Good Dynamic Sitting Balance: Good Sitting Equilibrium Reactions: Within Normal Limits Left and Within Normal Limit Right Sitting Protective Reactions: Within Normal Limits Left and Within Normal Limit Right Standing Balance and Reactions Static Standing Balance: Fair Dynamic Standing Balance: Fair (-) Standing Equilibrium Reactions: Delayed Left and Delayed Right Standing Protective Reactions: Delayed Left and Delayed Right Functional Mobility Bed Mobility Scooting: CGA, 1 person assist, Verbal Cues and Tactile Cues Supine to Sit: CGA, 1 person assist, Verbal Cues and Tactile Cues Sit to Supine: CGA, 1 person assist, Verbal Cues and Tactile Cues Transfers Sit to Stand: Min Assist, 1 person assist, Verbal Cues and Tactile Cues Stand to Sit: CGA, 1 person assist, Verbal Cues and Tactile Cues Stand Pivot Transfers: Min Assist, 1 person assist, Verbal Cues and Tactile Cues Comments:: Patient follows verbal cues to use UE's to push from bed for sit to stand. Safety Awareness Safety Awareness: Fair ENMA INDEX SCORE: NA Ambulation Ambulation Weight Bearing Status: FWB Assistive Device Used: Rolling Walker Orthotic/Prosthetic Device: No Distance: 30 feet Assistance needed with Ambulation: Min Assist, 1 person assist, Verbal Cues and Tactile Cues Quality of Ambulation: Patient demonstrates forward posture and requires verbal cues to keep the walker at a safe distance as she advances it. Also needs assistance with turning walker to change directions. She demonstrates minimal foot clearance bilaterally and short stride. She demonstrates no loss of balance. Gait Deviations: Forward posture, Short stride and Lacks step continuity Factors Affecting Ambulation: Decreased Balance, Weakness, Decreased Safety, Limited Endurance and Limited Sensation Treatment time Time with patient Length of Evaluation: 14 mins Total treatment time: 16 Patient Education Education Patient Education: Education of diagnosis, Activity Modification and Education of Plan of Care Teaching Recipient: Patient Teaching Methods: Discussion Comments: Education on safety with transfers to and from the walker, and on optimal distance to keep walker from her while ambulating. Assessment Assessment Problem List:: Decreased level of function, Requires training/education, Decreased safety/Risk of falls and Weakness Rehab Potential: Good Further Therapy Indicated?: Yes Candidate for Swing Bed for Therapy Services?: Yes Comments: Patient was independent with ADL's and ambulation prior to recent illness. She demonstrates potential to benefit from skilled therapy to improve her strength and level of independence. Evaluation Complexity: HISTORY: Medium (Diabetes, Polyneuropathy, Fibromylagia), EXAM OF BODY SYSTEMS: Medium, CLINICAL PRESENTATION: Medium and CLINICAL DECISION MAKING: Medium Patient's Goal(s): Her goal is to gain strength and return to prior level of function. Short Term Goals GOAL #1: Supine <> sit SBA and vc's. Goal to be met by: 03/04/24 GOAL #2: Sit > stand with CGA of 1 and consistent use of UE's to push from bed/chair Goal to be met by: 03/04/24 GOAL #3: Pt to amb. with RW 80 feet with CGA of 1 with good foot clearance. Goal to be met by: 03/04/24 GOAL #4: Bilateral hip flexion and quad strength improved to 4/5. Goal to be met by: 03/05/24 GOAL #5: Pt to maintain standing balance w/o support, w/ min perturbations. Goal to be met by: 03/05/24 Intermediate Goals GOAL #1: Pt independent in all bed mobility. Goal to be met by: 03/12/24 GOAL #2: Pt to perform all transfers with SBA to I, with good safety. Goal to be met by: 03/12/24 GOAL #3: Pt to amb. with RW household distances SBA to I, with good safety. Goal to be met by: 03/12/24 Plan Plan of Care: Therapeutic EX, Neuromuscular Re-Educ, Therapeutic Activity and Self-Care/Home Management Frequency of Treatment: 1-2 X day, as tolerated Duration of Treatment: 7-10 days Anticipated Discharge Destination: Home Treatment Diagnosis (ICD 10 Codes): R26.2 Difficulty walking, Z91.81 at risk for falls, Z74.0 Reduced mobility, Has the Physician been added for Co-signature?: Yes
--- NOTE | 2024-03-02 13:35 | US ---
EXAM: LEFT LOWER EXTREMITY VENOUS DOPPLER 03/02/2024 HISTORY: Swelling COMPARISON: None. FINDINGS: Duplex ultrasound including mcdowell scale, color and spectral Doppler has been performed. Juan w, compression and augmentation is present within the left common femoral, greater saphenous, profund a femoral, femoral, popliteal and trifurcation veins. IMPRESSION: No evidence of left lower extremity deep vein thrombosis.
[2024-03-02] MEDS ORDERED: IMODIUM PO PRN (13:50)
[2024-03-02] MEDS: IMODIUM PO STA (14:06)
[2024-03-03 05:26] VITALS: RESP 16
[2024-03-03 06:01] LABS: ALANINE AMINOTRANSFERASE 30.6 U/L (0-35); ALBUMIN 2.98 g/dL (3.5-5.0); ALKALINE PHOSPHATASE 68.2 U/L (38-126); BILIRUBIN,TOTAL 0.26 mg/dL (0.2-1.3); BLOOD UREA NITROGEN 2.3 mg/dL (7-17); CALCIUM 7.43 mg/dL (8.4-10.2); CARBON DIOXIDE 28.9 mmol/L (22-30.0); CHLORIDE 106.7 mmol/L (98-107); CREATININE 0.61 mg/dL (0.60-1.30); GLUCOSE 109.5 mg/dL (74-106); MAGNESIUM 1.76 mg/dL (1.6-2.3); POTASSIUM 2.86 mmol/L (3.5-5.1); SODIUM 140.5 mmol/L (134.5-145); TOTAL PROTEIN 6.02 g/dL (6.3-8.2)
[2024-03-03 06:41] LABS: BASOPHILS % (AUTO) 0.4 % (0.0-3.0); EOSINOPHILS # (AUTO) 0.2 K/ul (0.0-0.7); EOSINOPHILS % (AUTO) 2.3 % (0.0-7.0); IMMATURE GRANULOCYTE % (AUTO) 0.4 % (0.0-5.0); LYMPHOCYTES # (AUTO) 1.8 K/uL (0.60-3.4); LYMPHOCYTES % (AUTO) 19.3 (10.0-50.0); MEAN CORPUSCULAR HEMOGLOBIN 29.3 pg (27.0-31.0); MEAN CORPUSCULAR HGB CONC 31.6 (31.8-35.4); MEAN CORPUSCULAR VOLUME 92.9 fl (81.0-99.0); MONOCYTES # (AUTO) 0.7 K/uL (0.4-2.0); MONOCYTES % (AUTO) 7.4 (0-10); NEUTROPHILS # (AUTO) 6.4 K/ul (2.0-6.9); NEUTROPHILS % (AUTO) 70.2 % (42.2-75.2); PLATELET COUNT 224 10^3/uL (140-440); RED BLOOD COUNT 4.09 10^6/ul (4.20-5.40); WHITE BLOOD COUNT 9.11 K/ul (4.6-10.2)
[2024-03-03] MEDS: K-DUR PO ONE ×2 (09:44→13:05)
[2024-03-03] MEDS: FLORASTOR PO SCH (09:44)
[2024-03-03] MEDS: MAGNESIUM SULF 2 G/50 ML BAG 2 GM/50 ML PIGGYBACK IV ONE (09:45)
[2024-03-03] MEDS: LOVENOX SUBCUT SCH (09:45)
--- NOTE | 2024-03-03 10:31 | DCSUM ---
Admission Date Admission Date: 03/02/24 Discharge Date Discharge Date: 03/03/24 Admission Diagnosis Admission Diagnosis: 1. Hypomagnesemia, severe 2. Hypokalemia in setting of diarrhea Discharge Diagnosis Discharge Diagnosis: 1. Hypomagnesemia, severe - Improved 2. Hypokalemia in setting of diarrhea 3. Acute distal colitis - Improved. 4. DMt2 5. GERD 6. Hyperlipidemia 7. LLE edema Hospital Provider Hospital Provider: ANA KENNEDY PA-C, [facility] Summary of History and Physical Summary of History and Physical: Patient is a 58 year old female who was recently hospitalized and discharged on 02/28 due to distal colitis. She was discharged with cipro and flagyl. She felt very weak once at home and was unable to perform her ADLs. She has continued to have some diarrhea but it is overall improved. No abd pain. Overall just feels too weak to be independent at home. In the ER patient was noted to have a magnesium level of 0.7. CT abd/pelvis no longer showing colitis. Patient given magnesium in the ER. Admitted to [facility]. Of note patient has a [employer] shunt due to chiari malformation per patient. Hospital Course Subjective: Patient was continued on oral abx. Mag and potassium replaced. Mag improved, continuing to receive mag and potassium supplement. Diarrhea has slowed down, about 4 stools in past 24 hrs per patient. Continues to be weak, worked well with therapy, felt to be a good swingbed patient. Insurance has approved, will transition to swingbed today. Appearance: Pleasant, No Apparent Distress and Alert HEENT: MMM CVS: No Murmur Abdomen: Soft, Non-Tender and No Distention Respiratory: No Accessory Muscle Use Extremities: Other (1+ nonpitting edema LLE ) Vital Signs: Most Recent Vital Signs Temperature 97.7 F 03/03/24 05:23 Temperature Source Oral 03/03/24 05:23 Temperature Source Oral 03/01/24 22:15 Pulse Rate 71 03/03/24 05:23 Respiratory Rate 16 03/03/24 05:23 Blood Pressure 138/77 03/03/24 05:23 Blood Pressure Mean 97 03/03/24 05:23 Blood Pressure Left Arm 141/78 03/02/24 01:04 Blood Pressure Location Right Radial Artery 03/03/24 05:23 Blood Pressure Position Supine 03/03/24 05:23 O2 Sat by Pulse Oximetry 97 03/03/24 05:23 Oxygen Delivery Method Room Air 03/03/24 10:00 Oxygen Flow Rate 2 03/02/24 20:00 Height 5 ft 6 in 03/02/24 11:24 Weight 253 lb 4 oz 03/02/24 11:24 Telemetry Type Remote Telemetry 03/03/24 07:00 Telemetry Monitoring Continues 03/03/24 07:00 Telemetry Heart Rate 66 03/03/24 07:00 EKG GA Interval 0.16 03/03/24 07:00 EKG QRS Interval 0.08 03/03/24 07:00 Telemetry Strip Reading SR 03/03/24 07:00 Imaging: EXAM: CT OF THE ABDOMEN AND PELVIS WITH CONTRAST TECHNIQUE: CT of the abdomen and pelvis was performed with contrast. Multiplanar reformats were performed. HISTORY: The abdominal pain and vomiting. COMPARISON: CT abdomen pelvis 02/26/2024. FINDINGS: Imaged lower thorax: Right-sided pleural catheter partially imaged. Trace right pleural effusion. Liver: Stable focal fatty infiltration along the falciform ligament. Gallbladder/Bile Ducts: Unchanged mild chronic dilation of the common bile duct, probably physiologic related to age and prior cholecystectomy. Spleen: Stable 2.6 cm hypodense lesion in the spleen, probably a hemangioma. Pancreas: Mild atrophy. 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 Kidneys/Ureters: Mild right hydronephrosis. No stones. Small bilateral renal cysts. Bowel/mesentery/peritoneum: No bowel obstruction. Normal appendix. No ascites or free air. Retroperitoneum/vessels: No aortic aneurysm. No adenopathy. Pelvis: Post hysterectomy. Bones/body wall: Small fat containing ventral hernias. No acute osseous abnormality. Multilevel degenerative spondylosis and mild levoconvex scoliosis. IMPRESSION: Small right pleural effusion. Right-sided pleural catheter partially imaged. Mild right hydronephrosis appears unchanged. No renal stones. Incidental and postsurgical findings as described above, similar to that seen on the previous exam. EXAM: CT HEAD WITHOUT CONTRAST TECHNIQUE: Noncontrast CT of the head with multiple reformats. HISTORY: Generalized weakness. COMPARISON: None available. FINDINGS: Right frontal approach ventriculostomy catheter. [employer] shunt reservoir at the right frontal scalp and [employer] shunt catheter tubing courses along the right posterolateral neck. No acute intracranial hemorrhage. No hydrocephalous. No midline shift. No evidence of infarct. No brain herniation. Patent basilar cisterns. Right frontal wilian hole. No acute osseous abnormality. Orbits are unremarkable. Sinuses and mastoid air cells are clear. IMPRESSION: No acute intracranial finding. Shunted ventricles appear normal in size, though no prior exam is available for comparison. EXAM: LEFT LOWER EXTREMITY VENOUS DOPPLER 03/02/2024 HISTORY: Swelling COMPARISON: None. FINDINGS: Duplex ultrasound including mcdowell scale, color and spectral Doppler has been performed. Flow, compression and augmentation is present within the left common femoral, greater saphenous, profunda femoral, femoral, popliteal and trifurcation veins. IMPRESSION: No evidence of left lower extremity deep vein thrombosis. Lab Results Last 24 Hours: 03/03/24 05:27 WBC 9.11 RBC 4.09 L Hgb 12.0 Hct 38.0 MCV 92.9 MCH 29.3 MCHC 31.6 L RDW Coeff of Rubio 15.0 H Plt Count 224 Immature Gran % (Auto) 0.4 Neut % (Auto) 70.2 Lymph % (Auto) 19.3 Chase % (Auto) 7.4 Eos % (Auto) 2.3 Baso % (Auto) 0.4 Neut # (Auto) 6.4 Lymph # (Auto) 1.8 Chase # (Auto) 0.7 Eos # (Auto) 0.2 Baso # (Auto) 0.0 Immature Gran # (Auto) 0.0 Sodium 140.5 Potassium 2.86 L Chloride 106.7 Carbon Dioxide 28.9 Anion Gap 7.76 BUN 2.3 L Creatinine 0.61 Estimated GFR (MDRD) 101.00 BUN/Creatinine Ratio 3.77 Glucose 109.5 H Calcium 7.43 L Magnesium 1.76 Total Bilirubin 0.26 AST 32.0 ALT 30.6 Alkaline Phosphatase 68.2 Total Protein 6.02 L Albumin 2.98 L Globulin 3.04 Albumin/Globulin Ratio 0.98 Discharge Instructions Discharge Planning: Discharge Planning > 60 minutes Discharge Medications: Medications at Discharge (Home Meds & RX) Discharge Plan Discharge Discharge Orders: Discharge Patient (ONCE); Ordered 03/03/24 Ordered By: ANA KENNEDY Activity Restrictions/Additional Instructions: DISCHARGE TO SWING Patient Disposition: DISCH W/I HOSP TO SWING BD Prescriptions: No Action omeprazole 20 mg capsule,delayed release(DR/EC) 20 mg PO DAILY atorvastatin 40 mg tablet 40 mg PO DAILY ezetimibe 10 mg tablet 10 mg PO DAILY sertraline 50 mg tablet 50 mg PO DAILY metformin 500 mg tablet 1,000 mg PO BID dapagliflozin propanediol [Farxiga] 10 mg tablet 10 mg PO DAILY gabapentin 400 mg capsule 1,200 mg PO TID ciprofloxacin HCl [Cipro] 500 mg tablet 500 mg PO BID Qty: 4 0RF metronidazole 500 mg tablet 500 mg PO BID Qty: 4 0RF Did you review [place] [employer] for ALL controlled substances?: Not Applicable Discussed opioids are addictive and Narcan is available by prescription or from pharmacy.: No Condition: Stable
[2024-03-03] MEDS: LOPRESSOR PO SCH (13:05)
[2024-03-03] MEDS ORDERED: K-DUR PO ONE ×2 (15:00→20:00)
--- NOTE | 2024-03-03 15:10 | ECHO2D ---
Date of Exam: 03/03/2024 Ordering Physician: ANA KENNEDY PA-C HOSPITALIST Room #: [id number] Reason for Echo: APPEARANCE OF PREMATURE ATRIAL CONTRACTIONS ON TELEMETRY, PREMATURE VENTRICULAR CONTRACTIONS ON TELEMETRY, M-Mode Normal Adult Results LV Dimensions Normal Adult Results AoV Opening excursions >1.6 >1.6 LVEDD-base- 3.5-5.8 5.6 Ao root dimensions 2.0-3.7 3.2 LVESD-base- 3.1-4.6 L. Atrium dimensions 1.9-3.8 4.7 Post. Wall thickness 0.8-1.1 1.3 IV septum (thickness) 0.7-1.2 1.3 Post. Wall excursion 0.72-1.3 NORMAL Septal motion NORMAL Systolic motion R. Ventricular cavity 1.5-2.0 NORMAL LVEF 60% 64% Paradoxical septal wall motion NORMAL 2-D : 2-D M Mode Echocardiogram was performed using apical four chamber and left parasternal long and short axis views. Mitral, tricuspid and aortic valves appear to be normal. Contractility of the left ventricle seems to be normal, so is the cavity size. ENLARGED LEFT ATRIAL CAVITY. Aortic root appears to be normal. There is no pericardial effusion. There is no thrombus noted in the left ventricle or left atrial cavity. M-MODE: MV: NORMAL AV: NORMAL TV: NORMAL PV: NORMAL CHAMBER SIZE: ENLARGED LEFT ATRIAL CAVITY. WALL MOTION: NORMAL PERICARDIUM: NORMAL INTERPRETATION: 1. LEFT VENTRICULAR HYPERTROPHY WITH ENLARGED LEFT ATRIAL CAVITY. 2. NORMAL LEFT VENTRICULAR CONTRACTILITY. 3. LEFT VENTRICLE CAVITY BORDERLINE. 4. NORMAL VALVES. MTDD
[2024-03-03 15:14] VITALS: BP 123/65; PULSE 57; TEMP 97
== END 2024-03-03 15:15 | disposition swing bed (61) ==
LOC: ED 22:14 → MEDSURG B 22:14 → UNDODISOB 03-03 11:35
PROVIDERS: ADMIT Hospitalist; ATTEND Physician Assistant
DX: R62.7 Adult failure to thrive; Q07.00 Arnold-Chiari syndrome without spina bifida or hydrocephalus; E78.5 Hyperlipidemia, unspecified; R19.7 Diarrhea, unspecified; Z51.81 Encounter for therapeutic drug level monitoring; R26.2 Difficulty in walking, not elsewhere classified; K51.90 Ulcerative colitis, unspecified, without complications; Z79.899 Other long term (current) drug therapy; E11.42 Type 2 diabetes mellitus with diabetic polyneuropathy; Z98.2 Presence of cerebrospinal fluid drainage device; Z79.4 Long term (current) use of insulin; Z74.09 Other reduced mobility; R60.0 Localized edema; J90 Pleural effusion, not elsewhere classified; Z91.81 History of falling; R11.2 Nausea with vomiting, unspecified; E83.42 Hypomagnesemia; M62.81 Muscle weakness (generalized); K21.9 Gastro-esophageal reflux disease without esophagitis; Z20.822 Contact with and (suspected) exposure to COVID-19; Z79.84 Long term (current) use of oral hypoglycemic drugs; E87.6 Hypokalemia